=== PATIENT | male | born 1955 | race Hispanic/Latino ===

== ENCOUNTER 2018-11-12 21:09 | Inpatient (IN) | payer MEDICARE, OTHER ==
[2018-11-12] MEDS ORDERED: ASPIRIN PO ONE (21:48)
[2018-11-12 22:00] LABS: Basophils % (Auto) 0.5 % (0.0-1.8); Eosinophils % (Auto) 0.7 % (0.0-4.3); Hematocrit 36.1 % (35.5-45.6); Hemoglobin 11.3 gm/dl (11.8-15.2); Lymphocytes # (Auto) 0.8 K/mm3 (1.2-5.4); Lymphocytes % (Auto) 17.8 % (13.4-35.0); Mean Corpuscular HGB Conc 31 % (32-34); Mean Corpuscular Volume 77 fl (84-94); Monocytes # (Auto) 0.2 K/mm3 (0.0-0.8); Monocytes % (Auto) 5.3 % (0.0-7.3); Red Blood Count 4.72 M/mm3 (3.65-5.03)
[2018-11-12 22:05] LABS: Platelet Count 73 K/mm3 (140-440); Red Cell Distribution Width 23.5 % (13.2-15.2)
--- NOTE | 2018-11-12 22:14 | Emergency Department Report ---
ED Chest Pain HPI - General Chief Complaint: Chest Pain Stated Complaint: CHEST PAIN/EPIGASTRIC PAIN Time Seen by Provider: 11/12/18 22:04 Source: patient Mode of arrival: Ambulatory Limitations: No Limitations - History of Present Illness MD Complaint: chest pain -: Sudden Onset: during rest Pain Radiation: none Severity: severe Severity scale (0 -10): 6 Quality: sharp, pressure Consistency: constant Improves With: nothing Worsens With: nothing re: nausea, diaphoresis Treatments Prior to Arrival: none Aspirin use within the Past 7 Days: (0) No - Related Data On Oral Contraceptives: No Previous Rx's Medication Instructions Recorded Last Taken Type Cyclobenzaprine [Flexeril 10mg] 10 mg PO QHS PRN #15 tablet 03/01/15 Unknown Rx HYDROcodone/APAP 5-325 [[place] 1 each PO Q6HR PRN #15 tablet 04/02/15 Unknown Rx 5-325 mg TAB] Ibuprofen [Motrin 600 MG tab] 600 mg PO Q8H PRN #40 tablet 04/02/15 Unknown Rx cephALEXin [Keflex] 500 mg PO Q6H #40 capsule 04/02/15 Unknown Rx Allergies Allergy/AdvReac Type Severity Reaction Status Date / Time No Known Allergies Allergy Verified 03/01/15 15:11 Heart Score - HEART Score History: Highly suspicious EKG: Non-specific Age: 45-65 Risk factors: 1-2 risk factors Troponin: < normal limit HEART Score: 5 - Critical Actions Critical Actions: 4-6 pts:12-16.6% risk of adverse cardiac event. Should be admitted ED Review of Systems ROS: Stated complaint: CHEST PAIN/EPIGASTRIC PAIN Other details as noted in HPI Comment: All other systems reviewed and negative Constitutional: denies: chills, fever Eyes: denies: eye pain, eye discharge, vision change ENT: denies: ear pain, throat pain Respiratory: shortness of breath. denies: cough, wheezing Cardiovascular: chest pain, palpitations Endocrine: no symptoms reported Gastrointestinal: denies: abdominal pain, nausea, diarrhea Genitourinary: denies: urgency, dysuria Musculoskeletal: denies: back pain, joint swelling, arthralgia Skin: denies: rash, lesions Neurological: denies: headache, weakness, paresthesias Psychiatric: denies: anxiety, depression Hematological/Lymphatic: denies: easy bleeding, easy bruising ED Past Medical Hx - Past Medical History Hx Hypertension: Yes Hx Arthritis: Yes Hx COPD: Yes Additional medical history: gout - Surgical History Past Surgical History?: No - Social History Smoking Status: Never Smoker Substance Use Type: None - Medications Home Medications: Home Medications Medication Instructions Recorded Confirmed Last Taken Type Cyclobenzaprine [Flexeril 10mg] 10 mg PO QHS PRN #15 tablet 03/01/15 Unknown Rx HYDROcodone/APAP 5-325 [[place] 1 each PO Q6HR PRN #15 tablet 04/02/15 Unknown Rx 5-325 mg TAB] Ibuprofen [Motrin 600 MG tab] 600 mg PO Q8H PRN #40 tablet 04/02/15 Unknown Rx cephALEXin [Keflex] 500 mg PO Q6H #40 capsule 04/02/15 Unknown Rx ED Physical Exam - General Limitations: No Limitations General appearance: alert, in no apparent distress - Head Head exam: Present: atraumatic, normocephalic - Eye Eye exam: Present: normal appearance, PERRL - ENT ENT exam: Present: normal exam, normal orophraynx, mucous membranes moist - Neck Neck exam: Present: normal inspection, full ROM - Respiratory Respiratory exam: Present: normal lung sounds bilaterally. Absent: respiratory distress - Cardiovascular Cardiovascular Exam: Present: regular rate, normal rhythm, tachycardia. Absent: systolic murmur, diastolic murmur, rubs, gallop - GI/Abdominal GI/Abdominal exam: Present: soft, normal bowel sounds. Absent: distended, tenderness - Rectal Rectal exam: Present: deferred - Extremities Exam Extremities exam: Present: normal inspection, full ROM, normal capillary refill - Back Exam Back exam: Present: normal inspection, full ROM - Neurological Exam Neurological exam: Present: alert, oriented X3, CN II-XII intact - Psychiatric Psychiatric exam: Present: normal affect, normal mood - Skin Skin exam: Present: warm, dry, intact, normal color. Absent: rash ED Course Vital Signs 11/12/18 11/12/18 11/12/18 21:49 22:09 22:16 Temperature 97.8 F Pulse Rate 87 127 H Respiratory 16 23 Rate Blood Pressure 116/88 103/58 O2 Sat by Pulse 100 84 100 Oximetry 11/12/18 11/12/18 11/12/18 22:30 22:43 22:46 Temperature Pulse Rate 129 H Respiratory 38 H 38 H 16 Rate Blood Pressure 103/58 102/75 O2 Sat by Pulse 98 Oximetry 11/12/18 11/12/18 11/12/18 23:00 23:15 23:54 Temperature Pulse Rate 141 H Respiratory 34 H 25 H 32 H Rate Blood Pressure 111/67 99/73 99/73 O2 Sat by Pulse 98 97 Oximetry 11/13/18 00:00 Temperature Pulse Rate 129 H Respiratory 25 H Rate Blood Pressure 99/59 O2 Sat by Pulse 73 L Oximetry - Consultations Consultation #1: 11/13/18 00:56 I consulted the partner alliance manager regional environmental manager Dr. Castellanos. He recommended putting the patient on heparin with heparin 5000 IV bolus and then admit the patient to the hospitalist. He will see the patient in the morning. Consultation #2: 11/13/18 00:58 Dr Supriya Vyas to admit patient. - Central Line Placement Right Femoral Consent Obtained: verbal consent, emergent situation Time Out Performed: Yes Patient Placed on Monitor/Pulse Ox: Yes MD Prep: mask, gown, gloves Central Line Prep: Chlorhexidine scrub, sterile drapes applied Local Anesthesia Used: Lidocaine 1% Amount of Anesthesia Used (mls): 5 Ultrasound Used for Placement: Yes Central Line Lumen Inserted: triple Bloods Obtained for Lab: No Central Line Position: good blood return, all ports aspirated, flus, sutured in place with 2-0 Dressing Applied: Tegaderm, sterile gauze/tape Patient Tolerated Procedure: well Complications: none ALISON score - Alison Score Age > 65: (0) No Aspirin use within the Past 7 Days: (0) No 3 or more CAD Risk Factors: (0) No 2 or more Angina events in past 24 hrs: (0) No Known CAD with more than 50% Stenosis: (0) No Elevated Cardiac Markers: (0) No ST Deviation Greater than 0.5mm: (0) No ALISON Score: 0 ED Medical Decision Making - Lab Data Result diagrams: 11/13/18 00:59 11/12/18 21:50 Lab Results 11/12/18 11/12/18 11/12/18 Range/Units 21:50 21:50 Unknown WBC 4.4 L (4.5-11.0) K/mm3 RBC 4.72 (3.65-5.03) M/mm3 Hgb 11.3 L (11.8-15.2) gm/dl Hct 36.1 (35.5-45.6) % MCV 77 L (84-94) fl MCH 24 L (28-32) pg MCHC 31 L (32-34) % RDW 23.5 H (13.2-15.2) % Plt Count 73 L (140-440) K/mm3 Lymph % (Auto) 17.8 (13.4-35.0) % [place] % (Auto) 5.3 (0.0-7.3) % Eos % (Auto) 0.7 (0.0-4.3) % Baso % (Auto) 0.5 (0.0-1.8) % Lymph # 0.8 L (1.2-5.4) K/mm3 [place] # 0.2 (0.0-0.8) K/mm3 Eos # 0.0 (0.0-0.4) K/mm3 Baso # 0.0 (0.0-0.1) K/mm3 Seg Neutrophils % 75.7 H (40.0-70.0) % Seg Neutrophils # 3.3 (1.8-7.7) K/mm3 PT 20.5 H (12.2-14.9) Sec. INR 1.71 H (0.87-1.13) APTT 31.2 (24.2-36.6) Sec. Sodium 137 (137-145) mmol/L Potassium 3.1 L (3.6-5.0) mmol/L Chloride 101.6 (98-107) mmol/L Carbon Dioxide 22 (22-30) mmol/L Anion Gap 17 mmol/L BUN 9 (9-20) mg/dL Creatinine 0.6 L (0.8-1.5) mg/dL Estimated GFR > 60 ml/min BUN/Creatinine Ratio 15 % Glucose 124 H (75-100) mg/dL Calcium 8.4 (8.4-10.2) mg/dL Total Bilirubin (0.1-1.2) mg/dL Direct Bilirubin (0-0.2) mg/dL Indirect Bilirubin mg/dL AST (5-40) units/L ALT (7-56) units/L Alkaline Phosphatase (35-129) units/L Troponin T < 0.010 (0.00-0.029) ng/mL NT-Pro-B Natriuret Pep (0-900) pg/mL Total Protein (6.3-8.2) g/dL Albumin (3.9-5) g/dL Albumin/Globulin Ratio % 11/12/18 11/13/18 Range/Units Unknown 00:08 WBC (4.5-11.0) K/mm3 RBC (3.65-5.03) M/mm3 Hgb (11.8-15.2) gm/dl Hct (35.5-45.6) % MCV (84-94) fl MCH (28-32) pg MCHC (32-34) % RDW (13.2-15.2) % Plt Count (140-440) K/mm3 Lymph % (Auto) (13.4-35.0) % [place] % (Auto) (0.0-7.3) % Eos % (Auto) (0.0-4.3) % Baso % (Auto) (0.0-1.8) % Lymph # (1.2-5.4) K/mm3 [place] # (0.0-0.8) K/mm3 Eos # (0.0-0.4) K/mm3 Baso # (0.0-0.1) K/mm3 Seg Neutrophils % (40.0-70.0) % Seg Neutrophils # (1.8-7.7) K/mm3 PT (12.2-14.9) Sec. INR (0.87-1.13) APTT (24.2-36.6) Sec. Sodium (137-145) mmol/L Potassium (3.6-5.0) mmol/L Chloride (98-107) mmol/L Carbon Dioxide (22-30) mmol/L Anion Gap mmol/L BUN (9-20) mg/dL Creatinine (0.8-1.5) mg/dL Estimated GFR ml/min BUN/Creatinine Ratio % Glucose (75-100) mg/dL Calcium (8.4-10.2) mg/dL Total Bilirubin 2.50 H (0.1-1.2) mg/dL Direct Bilirubin 0.9 H (0-0.2) mg/dL Indirect Bilirubin 1.6 mg/dL AST 77 H (5-40) units/L ALT 24 (7-56) units/L Alkaline Phosphatase 72 (35-129) units/L Troponin T < 0.010 (0.00-0.029) ng/mL NT-Pro-B Natriuret Pep 823.6 (0-900) pg/mL Total Protein 7.1 (6.3-8.2) g/dL Albumin 3.2 L (3.9-5) g/dL Albumin/Globulin Ratio 0.8 % - EKG Data -: EKG Interpreted by Me EKG shows normal: sinus rhythm Rate: tachycardia (123) - EKG Data When compared to previous EKG there are: previous EKG unavailable Interpretation: nonspecific ST-T wave mine, LVH 11/12/18 22:37 LBBB. EKG was sent to the partner alliance manager regional environmental manager Dr Castellanos and he reviewed it and agreed with LBBB and No STEMI. He wants aspirin and morphine given to the patient. No code STEMI indicated according to Dr Castellanos. - Radiology Data Radiology results: report reviewed, image reviewed CTA chest showed no PE. CXR is negative. - Medical Decision Making Unstable Angina. Arrhythmia. Chest pain. Hypotension. Critical Care Time: Yes Critical care time in (mins) excluding proc time.: 70 Critical care attestation.: If time is entered above; I have spent that time in minutes in the direct care of this critically ill patient, excluding procedure time. ED Disposition Clinical Impression: Unstable angina, Hypokalemia Chest pain Qualifiers: Chest pain type: unspecified Qualified Code(s): R07.9 - Chest pain, unspecified Arrhythmia Qualifiers: Arrhythmia type: unspecified cardiac arrhythmia Qualified Code(s): I49.9 - Card iac arrhythmia, unspecified Disposition: -09 OP ADMIT IP TO THIS HOSP Is pt being admited?: Yes Does the pt Need Aspirin: Yes Condition: Stable Instructions: Angina (ED), Chest Pain (ED) Referrals: PRIMARY CARE,MD [Primary Care Provider] - 3-5 Days Time of Disposition: 03:00
[2018-11-12] MEDS ORDERED: NACL 0.9% 1000 ML 1,000 ML ONE (22:16)
[2018-11-12] MEDS ORDERED: MORPHINE IV ONE (22:22)
[2018-11-12] MEDS ORDERED: ZOFRAN IV ONE (22:23)
[2018-11-12 22:24] LABS: BUN/Creatinine Ratio 15; Blood Urea Nitrogen 9 mg/dL (9-20); Calcium 8.4 mg/dL (8.4-10.2); Hemolysis Index 8
[2018-11-12 22:33] LABS: INR 1.71 (0.87-1.13)
[2018-11-12 22:34] LABS: Partial Thromboplastin Time 31.2 Sec. (24.2-36.6)
[2018-11-12] MEDS ORDERED: NACL 0.9% 1000 ML 1,000 ML IV ONE (22:36)
[2018-11-12 22:39] LABS: Albumin 3.2 g/dL (3.9-5); Bilirubin,Direct 0.9 mg/dL (0-0.2)
--- NOTE | 2018-11-12 23:27 | XRay Report ---
FINAL REPORT PROCEDURE: XR CHEST 1V AP TECHNIQUE: Chest radiograph anteroposterior view. CPT 35780 HISTORY: chest pain COMPARISON: No prior studies are available for comparison. FINDINGS: Heart: Normal. Mediastinum/Vessels: Normal. Lungs/Pleural space: Normal. Bony thorax: No acute osseous abnormality. Life support devices: None. IMPRESSION: No acute cardiopulmonary abnormality.
--- NOTE | 2018-11-13 00:02 | Cat Scan Report ---
FINAL REPORT PROCEDURE: CT ANGIO CHEST TECHNIQUE: Computerized tomographic angiography of the chest was performed after the IV injection of iodinated nonionic contrast including image processing. The image data was postprocessed using 2-dim ensional multiplanar reformatted (MPR) and 3-dimensional (MIP and/or volume rendered) techniques. HISTORY: chest pain COMPARISON: No prior studies are available for comparison. FINDINGS: Heart and pericardium: Normal. Thoracic aorta: Normal. Pulmonary vasculature: No evidence of pulmonary arterial emboli. Lymph nodes: No enlarged thoracic lymph nodes. Lungs: Slight obstructive pulmonary changes identified in both lungs. No acute consolidation or effus ion. The central airway is patent. Pleural space: No effusion, thickening, or pneumothorax. Musculoskeletal structures: No significant abnormality. Upper abdominal structures: No significant abnormality. IMPRESSION: There is no evidence of pulmonary arterial emboli. No evidence of an acute cardiopulmonary process.
[2018-11-13] MEDS ORDERED: HEPARIN 10,000 UNITS/10 ML IV ONE (00:51)
[2018-11-13] MEDS ORDERED: CORDARONE 150 MG in D5W 97 ML IV ONE (00:58)
[2018-11-13] MEDS ORDERED: HEPARIN/ 0.45% NACL-25,000 UNIT/500 ML 25,000 UNIT/500 ML BAG IV SCH (01:00)
[2018-11-13] MEDS ORDERED: CORDARONE 900 MG in D5W 482 ML IV SCH (01:00)
[2018-11-13 01:45] LABS: Hematocrit 37.7 % (35.5-45.6); Hemoglobin 11.2 gm/dl (11.8-15.2)
[2018-11-13 01:52] LABS: INR 1.9 (0.87-1.13)
[2018-11-13 01:53] LABS: Partial Thromboplastin Time 30.3 Sec. (24.2-36.6)
[2018-11-13] MEDS ORDERED: NACL 0.9% 1000 ML 1,000 ML IV ONE ×2 (02:59→21:00)
[2018-11-13] MEDS ORDERED: MAGNESIUM SULFATE 2GM/50ML 2 GM/50 ML BAG IV ONE (03:22)
[2018-11-13] MEDS: KCL 10MEQ/100ML 10 MEQ/100 ML BAG IV SCH ×2 (03:56→07:35)
[2018-11-13] MEDS: LEVOPHED 8 MG in NACL 0.9% 250ML 242 ML IV SCH ×3 (03:57→15:44)
[2018-11-13] MEDS ORDERED: ZOFRAN IV PRN (04:49)
[2018-11-13] MEDS ORDERED: SODIUM CHLORIDE FLUSH SYRINGE 10 ML IV PRN (04:49)
[2018-11-13] MEDS ORDERED: TYLENOL PO PRN (04:49)
--- NOTE | 2018-11-13 05:21 | History and Physical Report ---
History of Present Illness Date of examination: 11/13/18 History of present illness: 63-year-old man with history of hypertension, COPD, hepatitis C, left bundle branch block cause emergency room with complaints of chest pain. Pain is in the epigastric area which he describes as sharp, constant, intensity7/10, no radia tion, cannot identify exacerbating or relieving factor. He admits to shortness of breath, diaphoresis and nausea. Denies palpitation. While in the emergency room he had a run of [email or web address], he was started on amiodarone drip, heparin drip. His blood pressure dropped and was started on Levophed drip Review of systems Constitutional: no weight loss, chills, fever Ears, eyes, nose, mouth and throat: no nasal congestion, no nasal discharge, no sinus pressure, no vision change, no red eye. Neck: No neck pain or rigidity. Cardiovascular: no palpitations Respiratory: no cough, +shortness of breath Gastrointestinal: no hematochezia, abdominal pain Genitourinary : no frequency , no hematuria Musculoskeletal: no joint swelling or muscle ache Integumentary: no rash, no pruritis Neurological: no parathesias, no focal weakness Endocrine: no cold or heat intolerance, no polyuria or polydipsia Hematologic/Lymphatic: no easy bruising, no easy bleeding, no gland swelling Allergic/Immunologic: no urticaria, no angioedema. PAST MEDICAL HISTORY:hypertension, COPD, hepatitis C, left bundle branch block PAST SURGICAL HISTORY: Leg surgery SOCIAL HISTORY: Denies alcohol, drugs, tobacco FAMILY HISTORY: Hypertension Medications and Allergies Allergies Allergy/AdvReac Type Severity Reaction Status Date / Time No Known Allergies Allergy Verified 03/01/15 15:11 Home Medications Medication Instructions Recorded Confirmed Last Taken Type Cyclobenzaprine [Flexeril 10mg] 10 mg PO QHS PRN #15 tablet 03/01/15 Unknown Rx RX: HYDROcodone/APAP 5-325 [[place] 1 each PO Q6HR PRN #15 tablet 04/02/15 Unknown Rx 5-325 mg TAB] RX: Ibuprofen [Motrin 600 MG tab] 600 mg PO Q8H PRN #40 tablet 04/02/15 Unknown Rx cephALEXin [Keflex] 500 mg PO Q6H #40 capsule 04/02/15 Unknown Rx Active Meds: Active Medications Acetaminophen (Tylenol) 650 mg PO Q4H PRN PRN Reason: Pain MILD(1-3)/Fever >100.5/FERRARI Heparin Sodium/Sodium Chloride (Heparin/ 0.45% Nacl-25,000 Unit/500 Ml) 25,000 unit in 500 mls @ 20 mls/hr IV TITRATE ALVA; Protocol Last Admin: 11/13/18 03:06 Dose: 1,000 units/hr, 20 mls/hr Documented by: Amiodarone HCl 900 mg/ (Dextrose) 500 mls @ 33.33 mls/hr IV DIRECT ALVA; Protocol Last Admin: 11/13/18 02:35 Dose: 1 mg/min, 33.33 mls/hr Documented by: Norepinephrine 8 mg/ Sodium (Chloride) 250 mls @ 3.75 mls/hr IV TITR ALVA; Protocol Last Admin: 11/13/18 03:57 Dose: 2 mcg/min, 3.75 mls/hr Documented by: Ondansetron HCl (Zofran) 4 mg IV Q8H PRN PRN Reason: Nausea And Vomiting Sodium Chloride (Sodium Chloride Flush Syringe 10 Ml) 10 ml IV BID ALVA Sodium Chloride (Sodium Chloride Flush Syringe 10 Ml) 10 ml IV PRN PRN PRN Reason: LINE FLUSH Exam - Physical Exam Narrative exam: General Apperance: The patient lying in bed, breathing comfortable HEENT: Normocephalic, atraumatic. Pupils equally round and reactive to light, EOMI, no sclericterus or JVD or thyromegaly or nodule. , no carotid bruit, mucous membranes moist, no exudate or erythema Heart: S1-S2, regular is rhythm Lungs: Clear to auscultation bilaterally, breathing comfortable Abdomen: Positive bowel sounds, soft, tender inthe epigastric area, nondistended, no organomegaly Extremities: No edema cyanosis clubbing Skin: no rash, nodule, warm and dry Neuro: cranial nerves 2-12 intact, speech is fluent, motor/sensory intact - Constitutional Vitals: Temp Pulse Resp BP Pulse Ox 97.8 F 98 H 36 H 92/63 100 11/12/18 21:49 11/13/18 04:00 11/13/18 04:00 11/13/18 04:00 11/13/18 04:00 Results - Labs CBC & Chem 7: 11/15/18 03:36 11/15/18 03:36 Labs: Abnormal lab results 11/12/18 11/12/18 11/12/18 Range/Units 21:50 21:50 Unknown WBC 4.4 L (4.5-11.0) K/mm3 Hgb 11.3 L (11.8-15.2) gm/dl MCV 77 L (84-94) fl MCH 24 L (28-32) pg MCHC 31 L (32-34) % RDW 23.5 H (13.2-15.2) % Plt Count 73 L (140-440) K/mm3 Lymph # 0.8 L (1.2-5.4) K/mm3 Seg Neutrophils % 75.7 H (40.0-70.0) % PT 20.5 H (12.2-14.9) Sec. INR 1.71 H (0.87-1.13) Potassium 3.1 L (3.6-5.0) mmol/L Creatinine 0.6 L (0.8-1.5) mg/dL Glucose 124 H (75-100) mg/dL Total Bilirubin (0.1-1.2) mg/dL Direct Bilirubin (0-0.2) mg/dL AST (5-40) units/L Albumin (3.9-5) g/dL 11/12/18 11/13/18 11/13/18 Range/Units Unknown 00:59 00:59 WBC (4.5-11.0) K/mm3 Hgb 11.2 L (11.8-15.2) gm/dl MCV (84-94) fl MCH (28-32) pg MCHC (32-34) % RDW (13.2-15.2) % Plt Count 75 L (140-440) K/mm3 Lymph # (1.2-5.4) K/mm3 Seg Neutrophils % (40.0-70.0) % PT 22.2 H (12.2-14.9) Sec. INR 1.90 H (0.87-1.13) Potassium (3.6-5.0) mmol/L Creatinine (0.8-1.5) mg/dL Glucose (75-100) mg/dL Total Bilirubin 2.50 H (0.1-1.2) mg/dL Direct Bilirubin 0.9 H (0-0.2) mg/dL AST 77 H (5-40) units/L Albumin 3.2 L (3.9-5) g/dL - Imaging and Cardiology CT scan - chest: report reviewed Assessment and Plan Assessment V. tach Chest pain Epigastric tenderness Hypertension Cirrhosis Hep C Thrombocytopenia Plan Continue amiodarone drip, levophed drip DC heparin drip, patient's platelet is 73, monitor hemoglobin Check CT of the abdomen Check cardiac enzymes, echo, consult cardiology Consult critical care DVT prophylaxis
--- NOTE | 2018-11-13 06:50 | Cat Scan Report ---
FINAL REPORT PROCEDURE: CT ABDOMEN PELVIS WO CON TECHNIQUE: Computerized axial tomography of the abdomen and pelvis was performed without intravenous contrast. This study is performed without intravascular contrast material and its sensitivity for ab dominal and pelvic pathology, including neoplasms, inflammation, abscess, free fluid, thrombosis, art erial dissection and infarction, is reduced compared with a contrast enhanced study. HISTORY: abd pain COMPARISON: No prior studies are available for comparison. FINDINGS: Visualized lower thorax: Mild atelectasis both lower lungs. Liver: The liver has multiple areas of hypoattenuation consistent cirrhosis is a and possibly metasta tic change.. Spleen: Normal size and attenuation. Gallbladder and biliary system: Normal. Pancreas: Normal. Adrenals: Normal. Kidneys: Normal. GI tract: No obstruction. Multiple areas of attenuation throughout the liver may represent fibrosis a nd/or a mass this region. There is moderate ascites around the upper abdominal organs spine arm of th e pelvis.. Lymph nodes and mesentery: Normal. Vasculature: Moderate atherosclerosis of the aorta and branching vessels . Bladder: Normal. Reproductive organs: No pelvic masses. Peritoneum: There is scattered fluid throughout the abdomen and pelvis.. Musculoskeletal structures: No significant abnormality. Other: None. IMPRESSION: There are multiple areas of hypoattenuation throughout the liver consistent with cirrhosis and possib le metastatic change. Multiple loops of slightly dilated gas air-filled and gas-filled small bowel consistent with enteriti s or ileus. No obstruction is seen. Moderate ascites within the abdomen and pelvis. Atelectasis both lower lungs..
[2018-11-13 07:06] LABS: Hematocrit 34.8 % (35.5-45.6); Hemoglobin 10.7 gm/dl (11.8-15.2); Mean Corpuscular HGB Conc 31 % (32-34); Mean Corpuscular Volume 77 fl (84-94); Red Blood Count 4.51 M/mm3 (3.65-5.03)
[2018-11-13 07:25] LABS: Calcium 7.8 mg/dL (8.4-10.2)
[2018-11-13 07:26] LABS: Platelet Count 75 K/mm3 (140-440); Red Cell Distribution Width 22.7 % (13.2-15.2)
[2018-11-13 07:32] LABS: Creatine Kinase MB 2.4 ng/mL (0.0-4.0)
[2018-11-13 10:11] LABS: Band Neutrophils # (Manual) 0.5 K/mm3; Basophils % (Manual) 0 % (0.0-1.8); Eosinophils % (Manual) 0 % (0.0-4.3); Total Cells Counted 100
[2018-11-13 10:12] LABS: Anisocytosis 1+; Hypochromasia 1+; Ovalocytes Few; Platelet Estimate Consistent w Auto
[2018-11-13] MEDS ORDERED: MORPHINE IV PRN ×2 (11:07→11:54)
--- NOTE | 2018-11-13 11:47 | Consultation ---
History of Present Illness - Reason for Consult Consult date: 11/13/18 Hypotension Requesting physician: TANGELA AVINA - History of Present Illness 63 y/o male, presented to ED with chest pain. CTA was done and no PE was seen. Per patient soon there after he developed abdominal pain. Abdomen is distended. Patient also became hypotensive in the ED. Right groin ling placed and started on levophed. This is how he was admitted to the ICU. Patient remains on le vophed drip. He is on amio drip as he had a run of VTACH per report in the ED. He is awake and alert, in moderate distress. No other family or friends present at the bedside. Medications and Allergies Allergies Allergy/AdvReac Type Severity Reaction Status Date / Time No Known Allergies Allergy Verified 03/01/15 15:11 Home Medications Medication Instructions Recorded Confirmed Last Taken Type Cyclobenzaprine [Flexeril 10mg] 10 mg PO QHS PRN #15 tablet 03/01/15 Unknown Rx HYDROcodone/APAP 5-325 [[place] 1 each PO Q6HR PRN #15 tablet 04/02/15 Unknown Rx 5-325 mg TAB] Ibuprofen [Motrin 600 MG tab] 600 mg PO Q8H PRN #40 tablet 04/02/15 Unknown Rx cephALEXin [Keflex] 500 mg PO Q6H #40 capsule 04/02/15 Unknown Rx Active Meds: Active Medications Acetaminophen (Tylenol) 650 mg PO Q4H PRN PRN Reason: Pain MILD(1-3)/Fever >100.5/FERRARI Heparin Sodium/Sodium Chloride (Heparin/ 0.45% Nacl-25,000 Unit/500 Ml) 25,000 unit in 500 mls @ 20 mls/hr IV TITRATE ALVA; Protocol Last Admin: 11/13/18 03:06 Dose: 1,000 units/hr, 20 mls/hr Documented by: Amiodarone HCl 900 mg/ (Dextrose) 500 mls @ 33.33 mls/hr IV DIRECT ALVA; Protocol Last Titration: 11/13/18 09:18 Dose: 0.5 mg/min, 16.67 mls/hr Documented by: Norepinephrine 8 mg/ Sodium (Chloride) 250 mls @ 3.75 mls/hr IV TITR ALVA; Protocol Last Titration: 11/13/18 07:15 Dose: 14 mcg/min, 26.25 mls/hr Documented by: Morphine Sulfate (Morphine) 2 mg IV Q4H PRN PRN Reason: Pain, Moderate (4-6) Ondansetron HCl (Zofran) 4 mg IV Q8H PRN PRN Reason: Nausea And Vomiting Sodium Chloride (Sodium Chloride Flush Syringe 10 Ml) 10 ml IV BID ALVA Sodium Chloride (Sodium Chloride Flush Syringe 10 Ml) 10 ml IV PRN PRN PRN Reason: LINE FLUSH Review of Systems All systems: negative Exam - Constitutional Vitals: Temp Pulse Resp BP Pulse Ox 97.8 F 92 H 35 H 95/60 96 11/12/18 21:49 11/13/18 09:10 11/13/18 09:10 11/13/18 09:10 11/13/18 11:40 General appearance: Present: mild distress, well-nourished, disheveled - EENT Eyes: Present: PERRL, EOM intact ENT: hearing intact - Neck Neck: Present: supple, normal ROM - Respiratory Respiratory effort: labored Respiratory: bilateral: diminished (but clear) - Cardiovascular Rhythm: regular Heart Sounds: Present: S1 & S2 - Extremities Extremities: no ischemia - Abdominal General gastrointestinal: Present: distended, hypoactive bowel sounds Male genitourinary: Present: deferred - Rectal Rectal Exam: deferred - Musculoskeletal Musculoskeletal: strength equal bilaterally Results - Labs CBC & Chem 7: 11/13/18 06:56 11/13/18 06:56 Labs: Abnormal lab results 11/12/18 11/12/18 11/12/18 Range/Units 21:50 21:50 Unknown WBC 4.4 L (4.5-11.0) K/mm3 Hgb 11.3 L (11.8-15.2) gm/dl Hct (35.5-45.6) % MCV 77 L (84-94) fl MCH 24 L (28-32) pg MCHC 31 L (32-34) % RDW 23.5 H (13.2-15.2) % Plt Count 73 L (140-440) K/mm3 Lymph # 0.8 L (1.2-5.4) K/mm3 Seg Neutrophils % 75.7 H (40.0-70.0) % Lymphocytes % (Manual) (13.4-35.0) % Monocytes % (Manual) (0.0-7.3) % Lymphocytes # (Manual) (1.2-5.4) K/mm3 PT 20.5 H (12.2-14.9) Sec. INR 1.71 H (0.87-1.13) Sodium (137-145) mmol/L Potassium 3.1 L (3.6-5.0) mmol/L Carbon Dioxide (22-30) mmol/L Creatinine 0.6 L (0.8-1.5) mg/dL Glucose 124 H (75-100) mg/dL Calcium (8.4-10.2) mg/dL Total Bilirubin (0.1-1.2) mg/dL Direct Bilirubin (0-0.2) mg/dL AST (5-40) units/L Total Creatine Kinase (55-170) units/L Albumin (3.9-5) g/dL 11/12/18 11/13/18 11/13/18 Range/Units Unknown 00:59 00:59 WBC (4.5-11.0) K/mm3 Hgb 11.2 L (11.8-15.2) gm/dl Hct (35.5-45.6) % MCV (84-94) fl MCH (28-32) pg MCHC (32-34) % RDW (13.2-15.2) % Plt Count 75 L (140-440) K/mm3 Lymph # (1.2-5.4) K/mm3 Seg Neutrophils % (40.0-70.0) % Lymphocytes % (Manual) (13.4-35.0) % Monocytes % (Manual) (0.0-7.3) % Lymphocytes # (Manual) (1.2-5.4) K/mm3 PT 22.2 H (12.2-14.9) Sec. INR 1.90 H (0.87-1.13) Sodium (137-145) mmol/L Potassium (3.6-5.0) mmol/L Carbon Dioxide (22-30) mmol/L Creatinine (0.8-1.5) mg/dL Glucose (75-100) mg/dL Calcium (8.4-10.2) mg/dL Total Bilirubin 2.50 H (0.1-1.2) mg/dL Direct Bilirubin 0.9 H (0-0.2) mg/dL AST 77 H (5-40) units/L Total Creatine Kinase (55-170) units/L Albumin 3.2 L (3.9-5) g/dL 11/13/18 11/13/18 11/13/18 Range/Units 06:56 06:56 06:56 WBC 3.6 L (4.5-11.0) K/mm3 Hgb 10.7 L (11.8-15.2) gm/dl Hct 34.8 L (35.5-45.6) % MCV 77 L (84-94) fl MCH 24 L (28-32) pg MCHC 31 L (32-34) % RDW 22.7 H (13.2-15.2) % Plt Count 75 L (140-440) K/mm3 Lymph # (1.2-5.4) K/mm3 Seg Neutrophils % (40.0-70.0) % Lymphocytes % (Manual) 3.0 L (13.4-35.0) % Monocytes % (Manual) 10.0 H (0.0-7.3) % Lymphocytes # (Manual) 0.1 L (1.2-5.4) K/mm3 PT (12.2-14.9) Sec. INR (0.87-1.13) Sodium 136 L (137-145) mmol/L Potassium 3.3 L (3.6-5.0) mmol/L Carbon Dioxide 13 L D (22-30) mmol/L Creatinine 1.6 H D (0.8-1.5) mg/dL Glucose (75-100) mg/dL Calcium 7.8 L (8.4-10.2) mg/dL Total Bilirubin (0.1-1.2) mg/dL Direct Bilirubin (0-0.2) mg/dL AST (5-40) units/L Total Creatine Kinase 185 H (55-170) units/L Albumin (3.9-5) g/dL Assessment and Plan 63 y/o male, originally presented with chest pain resolved, now with abdominal pain, distention and possible Ileus vs enteritis based up CT read with ascities and hypotension. 1. Patient appears to be septic but exact etiology is not known. He is leukopenic and hypotensive. Suggest checking blood and urine cultures as well as UA. Sent lactic acid. Given read of CT with ascities, could have SBP so needs at least a diagnostic paracentesis and empiric abx therapy. 2. Hypotension- Continue levophed. Can give more volume but must be careful and monitor pulmonary status closely. With possible liver disease will add vasopressin therapy as well. 3. Hypokalemia, replace per primary team. 4. NPO for now, ok with ICE chips CCT 31 minutes.
--- NOTE | 2018-11-13 12:37 | Consultation ---
History of Present Illness Consult date: 11/13/18 Consult reason: chest pain History of present illness: 63-year-old white male presenting with chest pain and epigastric pain which is nonexertional. Patient while in the emergency room had a run of ventricular tachycardia which was nonsustained patient was started on an amiodarone drip as well as a heparin drip. His pain at the time of my evaluation has subsided. Past History Past Medical History: CAD, COPD, hypertension, hyperlipidemia Past Surgical History: No surgical history Social history: no significant social history Medications and Allergies Allergies Allergy/AdvReac Type Severity Reaction Status Date / Time No Known Allergies Allergy Verified 03/01/15 15:11 Home Medications Medication Instructions Recorded Confirmed Last Taken Type Cyclobenzaprine [Flexeril 10mg] 10 mg PO QHS PRN #15 tablet 03/01/15 Unknown Rx HYDROcodone/APAP 5-325 [[place] 1 each PO Q6HR PRN #15 tablet 04/02/15 Unknown Rx 5-325 mg TAB] Ibuprofen [Motrin 600 MG tab] 600 mg PO Q8H PRN #40 tablet 04/02/15 Unknown Rx cephALEXin [Keflex] 500 mg PO Q6H #40 capsule 04/02/15 Unknown Rx Active Meds: Active Medications Heparin Sodium/Sodium Chloride (Heparin/ 0.45% Nacl-25,000 Unit/500 Ml) 25,000 unit in 500 mls @ 20 mls/hr IV TITRATE ALVA; Protocol Last Admin: 11/13/18 03:06 Dose: 1,000 units/hr, 20 mls/hr Documented by: Amiodarone HCl 900 mg/ (Dextrose) 500 mls @ 33.33 mls/hr IV DIRECT ALVA; Protocol Last Titration: 11/13/18 09:18 Dose: 0.5 mg/min, 16.67 mls/hr Documented by: Norepinephrine 8 mg/ Sodium (Chloride) 250 mls @ 3.75 mls/hr IV TITR ALVA; Protocol Last Titration: 11/13/18 07:15 Dose: 14 mcg/min, 26.25 mls/hr Documented by: Vasopressin 20 unit/ Sodium (Chloride) 101 mls @ 9.09 mls/hr IV TITR ALVA; Protocol Morphine Sulfate (Morphine) 1 mg IV Q4H PRN PRN Reason: Pain, Moderate (4-6) Ondansetron HCl (Zofran) 4 mg IV Q8H PRN PRN Reason: Nausea And Vomiting Sodium Chloride (Sodium Chloride Flush Syringe 10 Ml) 10 ml IV BID ALVA Sodium Chloride (Sodium Chloride Flush Syringe 10 Ml) 10 ml IV PRN PRN PRN Reason: LINE FLUSH Review of Systems Constitutional: no weight loss, no weight gain, no sweats, no anorexia, no fatigue, no weakness Ears, nose, mouth and throat: no deferred, no ear pain, no ear discharge, no tinnitis, no dental pain, no mouth pain, no headache, no vertigo Cardiovascular: chest pain, no orthopnea, no palpitations, no lightheadedness, no high blood pressure, no leg edema Respiratory: no cough, no hemoptysis, no dyspnea on exertion, no congestion, no pleurisy Gastrointestinal: no abdominal pain, no nausea, no vomiting, no diarrhea, no melena Genitourinary Male: no dysuria, no hematuria, no flank pain, no discharge, no urinary frequency, no nocturia, no incontinence Integumentary: no rash, no pruritis Neurological: no head injury, no paralysis, no weakness, no numbness, no vertigo, no headaches Psychiatric: no anxiety, no memory loss Endocrine: no cold intolerance, no heat intolerance, no excessive thirst, no polydipsia, no polyuria Hematologic/Lymphatic: no easy bruising, no easy bleeding Allergic/Immunologic: no urticaria, no allergic rhinitis, no wheezing Physical Examination Vital Signs Temp Pulse Resp BP Pulse Ox 97.8 F 87 16 116/88 100 11/12/18 21:49 11/12/18 21:49 11/12/18 21:49 11/12/18 21:49 11/12/18 21:49 General appearance: no acute distress, well-nourished HEENT: Positive: PERRL, Mucus Membranes Moist Neck: Positive: neck supple, trachea midline Cardiac: Positive: Reg Rate and Rhythm, S1/S2. Negative: Audible Murmur Lungs: Positive: clear to auscultation, Normal Breath Sounds Neuro: Positive: Grossly Intact Abdomen: Positive: Soft, Active Bowel Sounds. Negative: Tender, Distended Male genitourinary: Positive: normal Skin: Positive: Clear Incision: Cardiac Cath Site Musculoskeletal: No Pain, Normal Range of Motion Extremities: Present: normal. Absent: edema Results 11/13/18 06:56 11/13/18 06:56 Cardiac Enzymes 11/12/18 11/13/18 Range/Units Unknown 06:56 AST 77 H (5-40) units/L CK-MB (CK-2) 2.4 (0.0-4.0) ng/mL Coagulation 11/12/18 11/13/18 Range/Units Unknown 00:59 PT 20.5 H 22.2 H (12.2-14.9) Sec. INR 1.71 H 1.90 H (0.87-1.13) APTT 31.2 30.3 (24.2-36.6) Sec. CBC 11/12/18 11/13/18 11/13/18 Range/Units 21:50 00:59 06:56 WBC 4.4 L 3.6 L (4.5-11.0) K/mm3 RBC 4.72 4.51 (3.65-5.03) M/mm3 Hgb 11.3 L 11.2 L 10.7 L (11.8-15.2) gm/dl Hct 36.1 37.7 34.8 L (35.5-45.6) % Plt Count 73 L 75 L 75 L (140-440) K/mm3 Lymph # 0.8 L (1.2-5.4) K/mm3 [place] # 0.2 (0.0-0.8) K/mm3 Eos # 0.0 (0.0-0.4) K/mm3 Baso # 0.0 (0.0-0.1) K/mm3 Comprehensive Metabolic Panel 11/12/18 11/12/18 11/13/18 Range/Units 21:50 Unknown 06:56 Sodium 137 136 L (137-145) mmol/L Potassium 3.1 L 3.3 L (3.6-5.0) mmol/L Chloride 101.6 102.7 (98-107) mmol/L Carbon Dioxide 22 13 L D (22-30) mmol/L BUN 9 13 (9-20) mg/dL Creatinine 0.6 L 1.6 H D (0.8-1.5) mg/dL Glucose 124 H 93 (75-100) mg/dL Calcium 8.4 7.8 L (8.4-10.2) mg/dL Direct Bilirubin 0.9 H (0-0.2) mg/dL Indirect Bilirubin 1.6 mg/dL AST 77 H (5-40) units/L ALT 24 (7-56) units/L Alkaline Phosphatase 72 (35-129) units/L Total Protein 7.1 (6.3-8.2) g/dL Albumin 3.2 L (3.9-5) g/dL Assessment and Plan 1. Chest pain rule out underlying ischemic coronary artery disease 2. Abnormal resting EKG showing a left bundle branch block pattern 3. Chronic obstructive pulmonary disease 4. Essential hypertension 5. Hepatitis C Serial serum troponin levels are negative. We will discontinue intravenous heparin. Evidence of nonsustained ventricular tachycardia not available for review patient however has a left bundle branch block which "have been mistaken for nonsustained ventricular tachycardia. Plan. Discontinue heparin drip discontinue amiodarone drip check echocardiogram scheduled for a Lexiscan thallium scan.
[2018-11-13 13:07] LABS: Creatine Kinase MB 3.8 ng/mL (0.0-4.0)
[2018-11-13] MEDS ORDERED: NACL 0.9% 1000 ML 1,000 ML ONE ×2 (13:14→23:24)
[2018-11-13] MEDS ORDERED: NACL 0.9% 500 ML 500 ML IV ONE (14:15)
[2018-11-13] MEDS: NACL 0.9% 1000 ML 1,000 ML IV SCH ×5 (14:28→21:10)
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
[2018-11-13] MEDS: DIFLUCAN 200 MG/100 ML BAG IV SCH (15:23)
--- NOTE | 2018-11-13 15:28 | Event Note ---
Date: 11/13/18 Patient was seen and evaluated this morning. Patient admitted earlier this morning. H/P imaging and labs were reviewed. Patient has severe abdominal pain with elevated lactic acid level, general surgery was consulted and suspected perforated peptic ulcer, recommended repeat CT, broaden antibiotics including antifungals, may proceed with surgery if there is free air on repeat CT. Consent was obtained. Patient was hypotensive in the morning and was on pressors. Patient had cirrhosis, with ascites, hypertension, COPD. Patient had V. tach and was on amiodarone and discontinued per cardiology recommendation. Patient is critically sick. Prognosis; guarded The high probability of a clinically significant, sudden or life threatening deterioration of the [CV, GI, respiratory] system(s) required my full and direct attention, intervention and personal management. The aggregate critical care time was [34] minutes. This time is in addition to time spent performing reported procedures but includes the following: x] Data Review and interpretation [x] Patient assessment and monitoring of vital signs [x] Documentation [x] Medication orders and management
[2018-11-13] MEDS: PROTONIX 80 MG in NACL 0.9% 100 ML IV SCH (15:29)
[2018-11-13] MEDS: ZOSYN/NS 4.5GM/100ML 4.5 GM/100 ML VIAL IV SCH (16:22)
[2018-11-13] MEDS ORDERED: NACL 0.9% 500 ML 500 ML ONE (18:33)
--- NOTE | 2018-11-13 19:59 | Cat Scan Report ---
FINAL REPORT EXAM: CT ABDOMEN PELVIS W CON HISTORY: Concern for perforation TECHNIQUE: Following IV administration of 100 cc of Omnipaque 300 and administration of GI contrast axial helical imaging was performed through the abdomen and pelvis with sagittal and coronal reformat frank images obtained. Delayed axial helical imaging was also performed through the abdomen and pelvis. Comparison: CT abdomen and pelvis dated November 13, 2018 at 6 01 a.m. FINDINGS: There continues to be atelectasis in both lung bases. Heart is enlarged. The liver is diffusely heterogeneous in appearance. The spleen appears to be normal size. There is evidence of portal systemic collateral flow consistent with portal venous hypertension. The pancreas, kidneys and adrenal glands are unremarkable. The tip of the esophagogastric tube is in the stomach. There is a moderate amount of free fluid in the abdomen and pelvis that appears to of increased in de gree in the interval. The Hounsfield units are higher than would be expected for uncomplicated fluid and may represent proteinaceous content or blood products. There are collections of free air/pneumoperitoneum in the anterior abdomen as was demonstrated on the previous study. GI contrast is demonstrated in the stomach and proximal small bowel. There is no evidence of extravas ation of GI contrast. There is a mildly distended segment of small bowel in the anterior abdomen and pelvis with the appear ance of pneumatosis in the wall. This is suggestive of ischemic bowel wall. There is mild aneurysmal dilatation of the infrarenal abdominal aorta (2.8 centimeters). The this is similar in appearance to the previous study. There is a right femoral venous catheter with the tip in the right external iliac vein. The urinary bladder is moderately distended and unremarkable in appearance. The prostate gland appears to be normal size. The bony structures are notable for grade 2 anterolisthesis L5 on S1 and compression fractures L1 and L3 vertebra with near complete loss of height of the midportion the vertebra. There moderate to luh ed canal stenosis at the level of L1 secondary to retropulsion of the posterior superior endplate of L1 into the anterior epidural space. IMPRESSION: 1. Evidence of bowel wall ischemia with pneumatosis in a segment of small bowel in the anterior abdom en/pelvis. 2. Pneumoperitoneum consistent with bowel perforation. 3. Moderate amount of free fluid in the abdomen and pelvis that has increased in degree since the pre vious study and demonstrates Hounsfield units suggestive of proteinaceous content or blood products. 4. Appearance of hepatic cirrhosis with evidence of portal venous hypertension. 5. Compression fractures lumbar spine with moderate to marked canal stenosis at L1 and grade 2 michael listhesis L5 on S1. 6. Mild aneurysmal dilatation infrarenal abdominal aorta (2.8 centimeters). The findings of evidence of bowel ischemia with bowel perforation and increase in free fluid in the a bdomen and pelvis with Hounsfield units suggestive of proteinaceous content or blood products were re ported to the charge nurse MAVIS Matos at 7:55 p.m. November 13, 2018.
--- NOTE | 2018-11-13 20:37 | Anesthesia Consultation ---
Anesthesia Consult and Med Hx - Airway Anesthetic Teeth Evaluation: Poor ROM Head & Neck: Adequate Mental/Hyoid Distance: Adequate Mallampati Class: Class II Intubation Access Assessment: Probably Good - Pulmonary Exam CTA: No (tachypneic) - Cardiac Exam Cardiac Exam: RRR - Pre-Operative Health Status ASA Pre-Surgery Classification: ASA4, Emergency Proposed Anesthetic Plan: General - Pulmonary Hx Smoking: No Hx Asthma: No Hx Respiratory Symptoms: Yes (tachypnea) SOB: Yes COPD: Yes Home Oxygen Therapy: No Hx Pneumonia: No Hx Sleep Apnea: No - Cardiovascular System Hx Hypertension: Yes Hx Coronary Artery Disease: No Hx Heart Attack/AMI: No - Endocrine Hx End Stage Renal Disease: No - Other Systems Hx Alcohol Use: Yes
--- NOTE | 2018-11-13 20:38 | Anesthesia Day of Surgery ---
Anesthesia Day of Surgery - Day of Surgery Patient Examined: Yes Patient H&P Reviewed: Yes Patient is NPO: Yes Beta Blockers: No Cardiac Clearance: No Pulmonary Clearance: No Derrick's Test: N/A (COPD, Cirrhosis, necrotic bowel)
[2018-11-13] MEDS ORDERED: DECADRON ONE (20:55)
[2018-11-13] MEDS ORDERED: DIPRIVAN 10 MG/ML IV ONE (20:55)
[2018-11-13] MEDS ORDERED: XYLOCAINE MPF 2% ONE (20:56)
[2018-11-13] MEDS ORDERED: ZEMURON IV ONE (20:56)
[2018-11-13] MEDS ORDERED: VERSED IV ONE ×2 (21:57→23:32)
[2018-11-13] MEDS ORDERED: NEO SYNEPHRINE ONE (22:09)
[2018-11-13] MEDS ORDERED: NACL 0.9% 100 ML ONE (22:09)
[2018-11-13] MEDS ORDERED: VERSED IV PRN (23:12)
[2018-11-13] MEDS ORDERED: SUBLIMAZE IV PRN (23:12)
[2018-11-13] MEDS ORDERED: VASELINE LIP THERAPY TP PRN (23:12)
[2018-11-13] MEDS ORDERED: ARTIFICIAL TEARS OPHTH OINT OU PRN (23:12)
[2018-11-13] MEDS ORDERED: HESPAN 500 ML IV ONE (23:19)
[2018-11-13] MEDS ORDERED: MIDAZOLAM 100 MG in NACL 0.9% 80 ML IV SCH (23:45)
[2018-11-14] MEDS ORDERED: NEO SYNEPHRINE/NS Syringe(OR USE) IV ONE (00:02)
--- NOTE | 2018-11-14 00:02 | Post Operative Note ---
Date of procedure: 11/13/18 (Dictation:[id number]) Pre-op diagnosis: Duodenal Perforation Post-op diagnosis: other (cirrhotic liver with multiple nodules) Findings: 1.5cm perforation in duodenum very hard liver with wide spread small yellow nodules on surface large amount of ascites inflamed small bowel. Procedure: 1) ex lap 2) closure of duodenal perforation with Javid patch 3) stapled pyloric exclusion 4) liver bx 5) AbThera Placement Anesthesia: GETA Surgeon: ROBERT CHUNG Estimated blood loss: minimal (<25cc) Pathology: list (culture swabs; liver bx) Specimen disposition: to lab Condition: critical Disposition: PACU
[2018-11-14] MEDS ORDERED: ALBUTEIN IV ONE ×2 (00:04→13:00)
[2018-11-14] MEDS: fentaNYL DRIP Premix 2,000 MCG/100 ML BAG IV SCH (00:35)
[2018-11-14] MEDS: LEVOPHED 8 MG in NACL 0.9% 250ML 242 ML IV SCH ×6 (01:18→22:32)
[2018-11-14] MEDS ORDERED: SODIUM BICARBONATE 150 MEQ in NACL 0.9% 1000 ML 1,000 ML IV SCH ×2 (02:00→16:00)
[2018-11-14] MEDS ORDERED: SODIUM BICARBONATE 150 MEQ in D5W 1,000 ML IV SCH (02:00)
[2018-11-14] MEDS: PROTONIX 80 MG in NACL 0.9% 100 ML IV SCH ×3 (02:05→22:44)
[2018-11-14] MEDS: NEO-SYNEPHRINE 100 MG in NACL 0.9% 90 ML IV SCH ×5 (02:05→22:44)
--- NOTE | 2018-11-14 02:21 | XRay Report ---
FINAL REPORT PROCEDURE: XR CHEST 1V AP TECHNIQUE: Chest radiograph anteroposterior view. CPT 23878 HISTORY: follow up respiratory failure COMPARISON: 11/12/2018 FINDINGS: Heart: Normal. Mediastinum/Vessels: Normal. Lungs/Pleural space: Slight atelectasis right lower lung.. Bony thorax: No acute osseous abnormality. Life support devices: The endotracheal tube ends 4 centimeters above chandler. A nasogastric tube ends below the hemidiaphragms. IMPRESSION: Atelectasis right lower lung. The endotracheal tube and nasogastric tube are properly positioned..
[2018-11-14] MEDS: ZOSYN/NS 4.5GM/100ML 4.5 GM/100 ML VIAL IV SCH ×3 (05:16→06:31)
[2018-11-14 05:30] LABS: Mean Corpuscular HGB Conc 29 % (32-34); Mean Corpuscular Volume 85 fl (84-94); Red Blood Count 3.95 M/mm3 (3.65-5.03)
[2018-11-14 05:40] LABS: Hematocrit 33.5 % (35.5-45.6); Hemoglobin 9.5 gm/dl (11.8-15.2); Platelet Count 76 K/mm3 (140-440); Red Cell Distribution Width 23.8 % (13.2-15.2)
[2018-11-14 05:51] LABS: Albumin 2.6 g/dL (3.9-5); Calcium 7.1 mg/dL (8.4-10.2)
[2018-11-14] MEDS ORDERED: D50W (25GM) Syringe IV ONE ×4 (06:18→09:00)
[2018-11-14 06:58] LABS: Band Neutrophils # (Manual) 6.1 K/mm3; Basophils % (Manual) 0 % (0.0-1.8); Eosinophils % (Manual) 0 % (0.0-4.3); Myelocytes # (Manual) 0.6 K/mm3; Total Cells Counted 100
[2018-11-14 06:59] LABS: Anisocytosis 1+; Platelet Estimate Consistent w Auto
[2018-11-14] MEDS ORDERED: NACL 0.9% 1000 ML 4,000 ML IV ONE (07:23)
[2018-11-14] MEDS ORDERED: D10W 1,000 ML IV SCH (08:00)
[2018-11-14] MEDS: D10W 1,000 ML with SODIUM BICARBONATE 150 MEQ IV SCH ×3 (08:28→22:38)
[2018-11-14] MEDS ORDERED: D50W (25GM) Vial IV PRN (08:36)
[2018-11-14] MEDS: Vasostrict 20 UNIT in NACL 0.9% 100 ML IV SCH ×2 (09:50→18:20)
[2018-11-14] MEDS: DIFLUCAN 200 MG/100 ML BAG IV SCH (09:51)
--- NOTE | 2018-11-14 11:16 | Progress Note ---
Assessment and Plan 1. Acute abdomen secondary to perforated viscus s/p emergent exploratory Lap 2. Respiratory failure 3. Cardiomyopathy unspecified 4. Abnormal resting EKG showing a left bundle branch block pattern 5. Chronic obstructive pulmonary disease 6. Essential hypertension 7. Hepatitis C Plan. Cardiac estrella stable continue IV antibiotics check Echo Subjective Date of service: 11/14/18 Interval history: Patient intubated and sedated. S/P exploratory Lap for perforated viscus Objective Vital Signs Temp Pulse Pulse Resp BP Pulse Ox 11/14/18 10:30 92 H 34 H 79/50 95 11/14/18 10:20 93 H 34 H 81/49 95 11/14/18 10:10 93 H 34 H 80/53 95 11/14/18 10:00 95 H 34 H 87/44 95 11/14/18 09:50 93 H 34 H 86/48 95 11/14/18 09:40 93 H 34 H 85/46 94 11/14/18 09:30 91 H 34 H 85/46 94 11/14/18 09:20 93 H 34 H 88/49 94 11/14/18 09:10 93 H 34 H 96/44 94 11/14/18 09:00 97 H 34 H 81/53 93 11/14/18 08:50 94 H 33 H 81/53 92 11/14/18 08:40 94 H 34 H 96/47 92 11/14/18 08:30 97 H 33 H 84/54 92 11/14/18 08:20 94 H 33 H 84/51 92 11/14/18 08:10 82 28 H 66/40 73 L 11/14/18 08:00 97 H 33 H 91/53 94 11/14/18 07:50 93 H 30 H 78/47 92 11/14/18 07:40 85 27 H 56/35 92 11/14/18 07:30 92 H 32 H 67/40 93 11/14/18 07:20 98 H 32 H 90/43 95 11/14/18 07:10 100 H 33 H 90/48 95 11/14/18 07:06 100 H 94/49 95 11/14/18 07:00 100 H 32 H 94/49 95 11/14/18 06:50 101 H 33 H 100/56 95 11/14/18 06:40 102 H 33 H 110/60 95 11/14/18 06:30 102 H 33 H 106/56 94 11/14/18 06:20 100 H 33 H 101/52 95 11/14/18 06:10 100 H 31 H 108/56 96 11/14/18 06:00 100 H 98 H 32 H 101/51 96 11/14/18 05:50 100 H 33 H 104/56 96 11/14/18 05:40 100 H 32 H 102/54 96 11/14/18 05:30 100 H 31 H 105/53 97 11/14/18 05:20 100 H 31 H 107/54 97 11/14/18 05:10 100 H 31 H 108/56 97 11/14/18 05:00 100 H 31 H 102/54 98 11/14/18 04:50 100 H 30 H 107/55 98 11/14/18 04:40 99 H 30 H 103/52 98 11/14/18 04:30 98 H 28 H 104/55 97 11/14/18 04:20 98 H 28 H 102/54 97 11/14/18 04:10 97 H 98 H 29 H 104/54 97 11/14/18 04:00 97 H 26 H 105/55 98 11/14/18 03:50 96 H 27 H 100/56 98 11/14/18 03:40 96 H 26 H 103/55 98 11/14/18 03:30 95 H 24 101/54 100 11/14/18 03:20 95 H 23 101/56 99 11/14/18 03:10 95 H 24 102/55 99 11/14/18 03:00 94 H 20 107/54 99 11/14/18 02:50 94 H 22 102/54 99 11/14/18 02:40 92 H 19 94/52 98 11/14/18 02:30 91 H 20 92/51 98 11/14/18 02:20 91 H 19 89/49 98 11/14/18 02:10 91 H 18 86/46 99 11/14/18 02:00 92 H 18 87/44 99 11/14/18 01:50 93 H 19 92/50 100 11/14/18 01:40 94 H 18 92/50 98 11/14/18 01:38 97 H 18 84/48 98 11/14/18 01:35 97.1 F L 94 H 18 92/50 99 01/06/19 01:30 88 18 84/48 97 11/14/18 01:20 89 18 80/47 97 11/14/18 01:10 90 18 77/50 96 11/14/18 01:00 91 H 18 79/58 95 11/14/18 00:52 96 H 18 78/50 96 11/14/18 00:50 91 H 18 94/58 11/14/18 00:40 92 H 18 81/49 11/14/18 00:37 91 H 18 80/47 96 11/14/18 00:32 92 H 18 86/54 96 11/14/18 00:30 93 H 18 87/51 94 11/14/18 00:24 95 H 94/58 96 11/14/18 00:22 95 H 18 95/56 95 11/14/18 00:20 95 H 18 94/58 95 11/14/18 00:12 97 H 16 97/50 94 11/14/18 00:10 97 H 16 97/50 94 11/14/18 00:09 104 H 17 11/14/18 00:07 97.9 F 94 H 18 94/59 94 11/14/18 00:00 112 H 22 90 11/13/18 22:00 112 H 11/13/18 21:29 98 F 98/54 11/13/18 21:24 110 H 43 H 91 11/13/18 21:20 110 H 44 H 88 11/13/18 21:10 112 H 43 H 90/59 92 11/13/18 21:00 110 H 44 H 90/59 87 11/13/18 20:50 111 H 37 H 95/60 86 11/13/18 20:40 111 H 46 H 101/70 91 11/13/18 20:34 98.3 F 11/13/18 20:30 113 H 41 H 101/70 80 L 11/13/18 20:20 112 H 47 H 104/66 91 11/13/18 20:15 88 11/13/18 20:10 113 H 49 H 95/58 86 11/13/18 20:00 98.9 F 114 H 112 H 46 H 95/58 86 11/13/18 19:50 110 H 48 H 87/26 87 11/13/18 19:40 107 H 45 H 96/63 84 11/13/18 19:30 107 H 46 H 99/63 87 11/13/18 19:20 107 H 48 H 88 11/13/18 19:10 109 H 42 H 111/57 81 L 11/13/18 19:00 98 F 108 H 47 H 102/70 91 11/13/18 18:50 108 H 45 H 105/65 85 11/13/18 18:45 97.9 F 106 H 30 H 105/65 92 11/13/18 18:40 107 H 44 H 105/65 87 11/13/18 18:30 107 H 43 H 105/65 85 11/13/18 18:20 103 H 19 105/65 80 L 11/13/18 18:10 103 H 30 H 110/68 88 11/13/18 18:00 106 H 40 H 134/91 11/13/18 17:50 101 H 42 H 134/91 91 11/13/18 17:40 105 H 47 H 110/68 85 11/13/18 17:30 99 H 47 H 92/64 86 11/13/18 17:20 102 H 46 H 92/64 88 11/13/18 17:14 81/53 88 11/13/18 16:30 91 H 39 H 81/53 90 11/13/18 16:20 91 H 42 H 81/53 93 11/13/18 16:10 90 41 H 81/53 91 11/13/18 16:00 88 40 H 81/53 93 11/13/18 15:50 88 42 H 92/55 92 11/13/18 15:40 85 35 H 93/58 94 11/13/18 15:30 84 39 H 93/58 97 11/13/18 15:20 82 38 H 100/58 96 11/13/18 15:10 85 38 H 100/58 96 11/13/18 15:00 81 38 H 77/34 94 11/13/18 14:50 79 39 H 77/34 94 11/13/18 14:40 78 35 H 93/48 92 11/13/18 14:30 81 40 H 93/48 92 11/13/18 14:20 84 36 H 89/41 94 11/13/18 14:10 82 36 H 98/59 94 11/13/18 14:00 83 31 H 98/59 93 11/13/18 13:50 82 41 H 84/54 92 11/13/18 13:40 80 41 H 75/54 93 11/13/18 13:30 83 35 H 75/54 93 11/13/18 13:20 84 37 H 79/54 96 11/13/18 13:10 84 40 H 69/51 94 11/13/18 13:00 85 23 69/51 93 11/13/18 12:50 84 38 H 69/51 95 11/13/18 12:40 84 39 H 85/48 11/13/18 12:30 86 42 H 85/48 11/13/18 12:20 84 42 H 85/48 11/13/18 12:10 87 41 H 85/48 11/13/18 12:00 86 40 H 85/48 11/13/18 11:50 86 40 H 97/49 11/13/18 11:40 89 36 H 91/55 95 11/13/18 11:30 91 H 38 H 91/55 11/13/18 11:20 92 H 34 H 87/56 11/13/18 11:10 90 36 H 89/50 96 - Physical Examination General: Other (Intubated and sedated) HEENT: Positive: PERRL, Mucus Membranes Moist Neck: Positive: neck supple, trachea midline Cardiac: Positive: Regular Rate, S1/S2, PMI, Laterally Displaced Lungs: Positive: clear to auscultation, No Wheeze, Rales, Rhonchi Neuro: Positive: Grossly Intact Abdomen: Positive: Tender (S/p surgery abdomen is mildly distended) Skin: Positive: Clear Incision: Cardiac Cath Site Musculoskeletal: No Pain, Normal Range of Motion Extremities: Present: normal. Absent: edema - Labs and Meds Cardiac Enzymes 11/13/18 11/14/18 Range/Units 12:02 05:20 AST 2651 H (5-40) units/L CK-MB (CK-2) 3.8 (0.0-4.0) ng/mL CBC 11/14/18 Range/Units 05:15 WBC 14.3 H (4.5-11.0) K/mm3 RBC 3.95 (3.65-5.03) M/mm3 Hgb 9.5 L (11.8-15.2) gm/dl Hct 33.5 L (35.5-45.6) % Plt Count 76 L (140-440) K/mm3 Comprehensive Metabolic Panel 11/14/18 Range/Units 05:20 Sodium 142 (137-145) mmol/L Potassium 5.6 H D (3.6-5.0) mmol/L Chloride 107.2 H (98-107) mmol/L Carbon Dioxide 10 L (22-30) mmol/L BUN 16 (9-20) mg/dL Creatinine 2.5 H D (0.8-1.5) mg/dL Glucose 11 L* (75-100) mg/dL Calcium 7.1 L (8.4-10.2) mg/dL AST 2651 H (5-40) units/L ALT 437 H (7-56) units/L Alkaline Phosphatase 34 L (35-129) units/L Total Protein 5.6 L D (6.3-8.2) g/dL Albumin 2.6 L (3.9-5) g/dL
[2018-11-14] MEDS ORDERED: NACL 0.9% 1000 ML 1,000 ML IV ONE ×2 (11:49→16:01)
--- NOTE | 2018-11-14 12:03 | Progress Note ---
Assessment and Plan 63 y/o male, originally presented with chest pain resolved, now with abdominal pain, distention and possible Ileus vs enteritis based up CT read with ascities and hypotension found to have perforated viscous after discussing in consultatio n with surgery, s/p ex lap with open abdomen and wound vac, repair of torn viscous, and live biopsy. 63 y/o male originally admitted as a diagnosis of chest pain. Had a run of VTACH in the ED and became hypotensive. Central line placed and transferred to the unit. This was Thursday night into Thursday morning. In the unit, complained of abdominal pain with severe tenderness with mild palpation. After exam and interview, patient really had epigastric pain that has now progressed to his lower abdomen. It is the distended with hypoactive bowel sounds. Originally placed NG tube based on CT from the ED that was concerning for Ileus, only got back about 200. Sent lactic acid given that patient was hypotensive. Came back at 13 and that's when surgery consult was initiated. They reviewed the CT and saw the free air. Repeated CT confirmed and patient take to OR Thursday night. Current plan 1. Aggressive volume resuscitation. So far, ordered for 7 liters of saline today. Got at least 4 yesterday. Drop in hemoglobin is likely dilutional, do not feel patient is bleeding. Hypotension is currently multifactorial from sepsis from intrabdominal source as well as volume depletion and poor forward flow secondary to heart failure. Cards have seen but made no mention of maybe inotropic therapy so will discuss with them. if not able to reach may try low dose to see if this helps improve cardiac output. Will repeat CBC later tonight and may consider blood transfusion as a volume mechanical maintenance as well. 2. Sepsis-likely from perforated ulcer. Continue broad spec abx including zosy n and fluconazole. Did receive one dose of Vanc on yesterday. Agressive resuscitation. Will hold on stress dose steroids given open abdomen and how this could hinder wound healing. Also continue BID PPI. Agree with Albumin therapy given by surgery and will repeat later today. 3. Renal failure-likely secondary to shock. 4. Metabolic acidosis- severe, pH is still less than 7. hence why pressors are not working. Will push 3 more apps of Na bicarb now and continue drip. not a candiate for HD and this facility does not have CVVHD 5. GI- per surgery about 4 liters of ascities moved, clear, no puss. albumin given and may give more. Biopsy pending and no stomach and Duodenum are not connected. If patient survives this and shows improvement surgery would like to return to OR on if possible. 6. CV-cardiomyopathy with etiology unknown. HR is defintely not responding appropriately given current illness. Will try inotropic therapy with Dobutamine 7. Overall prognosis is guarded to poor. very high risk of cardiac arrest. Patient is critically ill. CCT 91 minutes. Subjective Date of service: 11/14/18 Interval history: Appreciate Surgery help on yesterday. Repeat CT showed perforated viscous. Pat ient taken to OR last night, returned intubated with open abdomen and wound vac. patient on multiple pressors and severely acidotic. Started bicarb drip in D10 secondary persistent hypoglycemia. Patient was also given 3 amps push last night as well. lactic acid remains elevated but no talk of necrotic gut removed from brief surgery note. Sedated with Fentanyl but only at 0.5. No family present at bedside. Objective Vital Signs - 12hr 11/14/18 11/14/18 11/14/18 00:00 00:07 00:09 Temperature 97.9 F Pulse Rate 94 H 104 H Pulse Rate [ 112 H Right Radial] Respiratory 22 18 17 Rate Blood Pressure 94/59 O2 Sat by Pulse 90 94 Oximetry 11/14/18 11/14/18 11/14/18 00:10 00:12 00:20 Temperature Pulse Rate 97 H 97 H 95 H Pulse Rate [ Right Radial] Respiratory 16 16 18 Rate Blood Pressure 97/50 97/50 94/58 O2 Sat by Pulse 94 94 95 Oximetry 11/14/18 11/14/18 11/14/18 00:22 00:24 00:30 Temperature Pulse Rate 95 H 95 H 93 H Pulse Rate [ Right Radial] Respiratory 18 18 Rate Blood Pressure 95/56 94/58 87/51 O2 Sat by Pulse 95 96 94 Oximetry 11/14/18 11/14/18 11/14/18 00:32 00:37 00:40 Temperature Pulse Rate 92 H 91 H 92 H Pulse Rate [ Right Radial] Respiratory 18 18 18 Rate Blood Pressure 86/54 80/47 81/49 O2 Sat by Pulse 96 96 Oximetry 11/14/18 11/14/18 11/14/18 00:50 00:52 01:00 Temperature Pulse Rate 91 H 96 H 91 H Pulse Rate [ Right Radial] Respiratory 18 18 18 Rate Blood Pressure 94/58 78/50 79/58 O2 Sat by Pulse 96 95 Oximetry 11/14/18 11/14/18 11/14/18 01:10 01:20 01:30 Temperature Pulse Rate 90 89 88 Pulse Rate [ Right Radial] Respiratory 18 18 18 Rate Blood Pressure 77/50 80/47 84/48 O2 Sat by Pulse 96 97 97 Oximetry 11/14/18 11/14/18 11/14/18 01:35 01:38 01:40 Temperature 97.1 F L Pulse Rate 94 H 97 H 94 H Pulse Rate [ Right Radial] Respiratory 18 18 18 Rate Blood Pressure 92/50 84/48 92/50 O2 Sat by Pulse 99 98 98 Oximetry 11/14/18 11/14/18 11/14/18 01:50 02:00 02:10 Temperature Pulse Rate 93 H 92 H 91 H Pulse Rate [ Right Radial] Respiratory 19 18 18 Rate Blood Pressure 92/50 87/44 86/46 O2 Sat by Pulse 100 99 99 Oximetry 11/14/18 11/14/18 11/14/18 02:20 02:30 02:40 Temperature Pulse Rate 91 H 91 H 92 H Pulse Rate [ Right Radial] Respiratory 19 20 19 Rate Blood Pressure 89/49 92/51 94/52 O2 Sat by Pulse 98 98 98 Oximetry 11/14/18 11/14/18 11/14/18 02:50 03:00 03:10 Temperature Pulse Rate 94 H 94 H 95 H Pulse Rate [ Right Radial] Respiratory 22 20 24 Rate Blood Pressure 102/54 107/54 102/55 O2 Sat by Pulse 99 99 99 Oximetry 11/14/18 11/14/18 11/14/18 03:20 03:30 03:40 Temperature Pulse Rate 95 H 95 H 96 H Pulse Rate [ Right Radial] Respiratory 23 24 26 H Rate Blood Pressure 101/56 101/54 103/55 O2 Sat by Pulse 99 100 98 Oximetry 11/14/18 11/14/18 11/14/18 03:50 04:00 04:10 Temperature Pulse Rate 96 H 97 H 97 H Pulse Rate [ 98 H Right Radial] Respiratory 27 H 26 H 29 H Rate Blood Pressure 100/56 105/55 104/54 O2 Sat by Pulse 98 98 97 Oximetry 11/14/18 11/14/18 11/14/18 04:20 04:30 04:40 Temperature Pulse Rate 98 H 98 H 99 H Pulse Rate [ Right Radial] Respiratory 28 H 28 H 30 H Rate Blood Pressure 102/54 104/55 103/52 O2 Sat by Pulse 97 97 98 Oximetry 11/14/18 11/14/18 11/14/18 04:50 05:00 05:10 Temperature Pulse Rate 100 H 100 H 100 H Pulse Rate [ Right Radial] Respiratory 30 H 31 H 31 H Rate Blood Pressure 107/55 102/54 108/56 O2 Sat by Pulse 98 98 97 Oximetry 11/14/18 11/14/18 11/14/18 05:20 05:30 05:40 Temperature Pulse Rate 100 H 100 H 100 H Pulse Rate [ Right Radial] Respiratory 31 H 31 H 32 H Rate Blood Pressure 107/54 105/53 102/54 O2 Sat by Pulse 97 97 96 Oximetry 11/14/18 11/14/18 11/14/18 05:50 06:00 06:10 Temperature Pulse Rate 100 H 100 H 100 H Pulse Rate [ 98 H Right Radial] Respiratory 33 H 32 H 31 H Rate Blood Pressure 104/56 101/51 108/56 O2 Sat by Pulse 96 96 96 Oximetry 11/14/18 11/14/18 11/14/18 06:20 06:30 06:40 Temperature Pulse Rate 100 H 102 H 102 H Pulse Rate [ Right Radial] Respiratory 33 H 33 H 33 H Rate Blood Pressure 101/52 106/56 110/60 O2 Sat by Pulse 95 94 95 Oximetry 11/14/18 11/14/18 11/14/18 06:50 07:00 07:06 Temperature Pulse Rate 101 H 100 H 100 H Pulse Rate [ Right Radial] Respiratory 33 H 32 H Rate Blood Pressure 100/56 94/49 94/49 O2 Sat by Pulse 95 95 95 Oximetry 11/14/18 11/14/18 11/14/18 07:10 07:20 07:30 Temperature Pulse Rate 100 H 98 H 92 H Pulse Rate [ Right Radial] Respiratory 33 H 32 H 32 H Rate Blood Pressure 90/48 90/43 67/40 O2 Sat by Pulse 95 95 93 Oximetry 11/14/18 11/14/18 11/14/18 07:40 07:50 08:00 Temperature Pulse Rate 85 93 H 97 H Pulse Rate [ Right Radial] Respiratory 27 H 30 H 33 H Rate Blood Pressure 56/35 78/47 91/53 O2 Sat by Pulse 92 92 94 Oximetry 11/14/18 11/14/18 11/14/18 08:10 08:20 08:30 Temperature Pulse Rate 82 94 H 97 H Pulse Rate [ Right Radial] Respiratory 28 H 33 H 33 H Rate Blood Pressure 66/40 84/51 84/54 O2 Sat by Pulse 73 L 92 92 Oximetry 11/14/18 11/14/18 11/14/18 08:40 08:50 09:00 Temperature Pulse Rate 94 H 94 H 97 H Pulse Rate [ Right Radial] Respiratory 34 H 33 H 34 H Rate Blood Pressure 96/47 81/53 81/53 O2 Sat by Pulse 92 92 93 Oximetry 11/14/18 11/14/18 11/14/18 09:10 09:20 09:30 Temperature Pulse Rate 93 H 93 H 91 H Pulse Rate [ Right Radial] Respiratory 34 H 34 H 34 H Rate Blood Pressure 96/44 88/49 85/46 O2 Sat by Pulse 94 94 94 Oximetry 11/14/18 11/14/18 11/14/18 09:40 09:50 10:00 Temperature Pulse Rate 93 H 93 H 95 H Pulse Rate [ Right Radial] Respiratory 34 H 34 H 34 H Rate Blood Pressure 85/46 86/48 87/44 O2 Sat by Pulse 94 95 95 Oximetry 11/14/18 11/14/18 11/14/18 10:10 10:20 10:30 Temperature Pulse Rate 93 H 93 H 92 H Pulse Rate [ Right Radial] Respiratory 34 H 34 H 34 H Rate Blood Pressure 80/53 81/49 79/50 O2 Sat by Pulse 95 95 95 Oximetry Constitutional: comatose (secondary to metabolic state and sedation) Eyes: non-icteric ENT: other (orally intubated and critically ill on vent) Neck: supple Ascultation: Bilateral: clear (anteriorly) Percussion: Bilateral: not dull Tactile fremitus: Bilateral: normal Cardiovascular: regular rate and rhythm Gastrointestinal: other (post surgical changes with wound vac in place) Extremities: cool Neurologic: unable to assess CBC and BMP: 11/14/18 05:15 11/14/18 05:20 ABG, PT/INR, D-dimer: ABG POC ABG pH 6.943 (7.35-7.45) L 11/14/18 01:25 POC ABG pCO2 38.2 (35-45) 11/14/18 01:25 POC ABG pO2 95 (80-105) 11/14/18 01:25 POC ABG HCO3 8.3 11/14/18 01:25 POC ABG Total CO2 9 11/14/18 01:25 POC ABG O2 Sat 91 11/14/18 01:25 PT/INR, D-dimer PT 22.2 Sec. (12.2-14.9) H 11/13/18 00:59 INR 1.90 (0.87-1.13) H 11/13/18 00:59 Abnormal lab findings: Abnormal Labs 11/12/18 11/12/18 11/12/18 21:50 21:50 Unknown WBC 4.4 L Hgb 11.3 L Hct MCV 77 L MCH 24 L MCHC 31 L RDW 23.5 H Plt Count 73 L Lymph # 0.8 L Seg Neutrophils % 75.7 H Seg Neuts % (Manual) Lymphocytes % (Manual) Monocytes % (Manual) Lymphocytes # (Manual) PT 20.5 H INR 1.71 H POC ABG pH Sodium Potassium 3.1 L Chloride Carbon Dioxide Creatinine 0.6 L Glucose 124 H POC Glucose Lactic Acid Calcium Total Bilirubin Direct Bilirubin AST ALT Alkaline Phosphatase Total Creatine Kinase Total Protein Albumin 11/12/18 11/13/18 11/13/18 Unknown 00:59 00:59 WBC Hgb 11.2 L Hct MCV MCH MCHC RDW Plt Count 75 L Lymph # Seg Neutrophils % Seg Neuts % (Manual) Lymphocytes % (Manual) Monocytes % (Manual) Lymphocytes # (Manual) PT 22.2 H INR 1.90 H POC ABG pH Sodium Potassium Chloride Carbon Dioxide Creatinine Glucose POC Glucose Lactic Acid Calcium Total Bilirubin 2.50 H Direct Bilirubin 0.9 H AST 77 H ALT Alkaline Phosphatase Total Creatine Kinase Total Protein Albumin 3.2 L 11/13/18 11/13/18 11/13/18 06:56 06:56 06:56 WBC 3.6 L Hgb 10.7 L Hct 34.8 L MCV 77 L MCH 24 L MCHC 31 L RDW 22.7 H Plt Count 75 L Lymph # Seg Neutrophils % Seg Neuts % (Manual) Lymphocytes % (Manual) 3.0 L Monocytes % (Manual) 10.0 H Lymphocytes # (Manual) 0.1 L PT INR POC ABG pH Sodium 136 L Potassium 3.3 L Chloride Carbon Dioxide 13 L D Creatinine 1.6 H D Glucose POC Glucose Lactic Acid Calcium 7.8 L Total Bilirubin Direct Bilirubin AST ALT Alkaline Phosphatase Total Creatine Kinase 185 H Total Protein Albumin 11/13/18 11/13/18 11/13/18 12:02 12:02 14:45 WBC Hgb Hct MCV MCH MCHC RDW Plt Count Lymph # Seg Neutrophils % Seg Neuts % (Manual) Lymphocytes % (Manual) Monocytes % (Manual) Lymphocytes # (Manual) PT INR POC ABG pH Sodium Potassium Chloride Carbon Dioxide Creatinine Glucose POC Glucose Lactic Acid 12.90 H* 12.60 H* Calcium Total Bilirubin Direct Bilirubin AST ALT Alkaline Phosphatase Total Creatine Kinase 290 H Total Protein Albumin 11/13/18 11/14/18 11/14/18 18:00 01:08 01:25 WBC Hgb Hct MCV MCH MCHC RDW Plt Count Lymph # Seg Neutrophils % Seg Neuts % (Manual) Lymphocytes % (Manual) Monocytes % (Manual) Lymphocytes # (Manual) PT INR POC ABG pH 6.943 L Sodium Potassium Chloride Carbon Dioxide Creatinine Glucose POC Glucose Lactic Acid 15.30 H* 11.30 H* Calcium Total Bilirubin Direct Bilirubin AST ALT Alkaline Phosphatase Total Creatine Kinase Total Protein Albumin 11/14/18 11/14/18 11/14/18 03:00 04:47 05:15 WBC 14.3 H Hgb 9.5 L Hct 33.5 L MCV MCH 24 L MCHC 29 L RDW 23.8 H Plt Count 76 L Lymph # Seg Neutrophils % Seg Neuts % (Manual) 38.0 L Lymphocytes % (Manual) 3.0 L Monocytes % (Manual) Lymphocytes # (Manual) 0.4 L PT INR POC ABG pH Sodium Potassium Chloride Carbon Dioxide Creatinine Glucose POC Glucose Lactic Acid 11.10 H* 11.10 H* Calcium Total Bilirubin Direct Bilirubin AST ALT Alkaline Phosphatase Total Creatine Kinase Total Protein Albumin 11/14/18 11/14/18 11/14/18 05:15 05:20 06:06 WBC Hgb Hct MCV MCH MCHC RDW Plt Count Lymph # Seg Neutrophils % Seg Neuts % (Manual) Lymphocytes % (Manual) Monocytes % (Manual) Lymphocytes # (Manual) PT INR POC ABG pH Sodium Potassium 5.6 H D Chloride 107.2 H Carbon Dioxide 10 L Creatinine 2.5 H D Glucose 11 L* POC Glucose Lactic Acid 12.10 H* 12.30 H* Calcium 7.1 L Total Bilirubin 5.20 H Direct Bilirubin AST 2651 H ALT 437 H Alkaline Phosphatase 34 L Total Creatine Kinase Total Protein 5.6 L D Albumin 2.6 L 11/14/18 11/14/18 11/14/18 06:57 08:30 10:52 WBC Hgb Hct MCV MCH MCHC RDW Plt Count Lymph # Seg Neutrophils % Seg Neuts % (Manual) Lymphocytes % (Manual) Monocytes % (Manual) Lymphocytes # (Manual) PT INR POC ABG pH Sodium Potassium Chloride Carbon Dioxide Creatinine Glucose POC Glucose 60 L < 40 L 68 L Lactic Acid Calcium Total Bilirubin Direct Bilirubin AST ALT Alkaline Phosphatase Total Creatine Kinase Total Protein Albumin Chest x-ray: image reviewed (expiratory film but clear, mild cardiomegaly but this is a portable film)
[2018-11-14] MEDS: ZOSYN/NS 2.25 GM/50ML 2.25 GM/50 ML BAG IV SCH ×2 (12:59→18:01)
[2018-11-14] MEDS: NACL 0.9% 1000 ML 1,000 ML IV SCH ×2 (13:00→14:07)
--- NOTE | 2018-11-14 13:12 | Progress Note ---
Assessment and Plan - Patient Problems (1) Duodenal ulcer perforation Current Visit: Yes Status: Acute Plan to address problem: Pt in critical condition. s/p ex lap, duodenal repair with Javid patch, pyloric exclusion, liver bx, and AbThera placement - 11/13/18 - POD#1. Pt needs very aggressive resuscitation. Currently in [facility]. Discussed case with Dr. Andre. Suggested that periodically, part of the vac drainage volume could be replaced with Albumin as we would do in a paracentesis situation. If the patient stabilizes, would like to take him back to OR on Thursday for washout, re-evaluation of repair and other organs, creation of gastro-intestinal bypass. Will need to do a 2 physician consent as there is no family available. Very poor prognosis. Subjective Date of service: 11/14/18 Patient Reports: Positive: other (additional pressor added last night) Objective Vital Signs - 12hr 11/14/18 11/14/18 11/14/18 01:10 01:20 01:30 Temperature Pulse Rate 90 89 88 Pulse Rate [ Right Radial] Respiratory 18 18 18 Rate Blood Pressure 77/50 80/47 84/48 O2 Sat by Pulse 96 97 97 Oximetry 11/14/18 11/14/18 11/14/18 01:35 01:38 01:40 Temperature 97.1 F L Pulse Rate 94 H 97 H 94 H Pulse Rate [ Right Radial] Respiratory 18 18 18 Rate Blood Pressure 92/50 84/48 92/50 O2 Sat by Pulse 99 98 98 Oximetry 11/14/18 11/14/18 11/14/18 01:50 02:00 02:10 Temperature Pulse Rate 93 H 92 H 91 H Pulse Rate [ Right Radial] Respiratory 19 18 18 Rate Blood Pressure 92/50 87/44 86/46 O2 Sat by Pulse 100 99 99 Oximetry 11/14/18 11/14/18 11/14/18 02:20 02:30 02:40 Temperature Pulse Rate 91 H 91 H 92 H Pulse Rate [ Right Radial] Respiratory 19 20 19 Rate Blood Pressure 89/49 92/51 94/52 O2 Sat by Pulse 98 98 98 Oximetry 11/14/18 11/14/18 11/14/18 02:50 03:00 03:10 Temperature Pulse Rate 94 H 94 H 95 H Pulse Rate [ Right Radial] Respiratory 22 20 24 Rate Blood Pressure 102/54 107/54 102/55 O2 Sat by Pulse 99 99 99 Oximetry 11/14/18 11/14/18 11/14/18 03:20 03:30 03:40 Temperature Pulse Rate 95 H 95 H 96 H Pulse Rate [ Right Radial] Respiratory 23 24 26 H Rate Blood Pressure 101/56 101/54 103/55 O2 Sat by Pulse 99 100 98 Oximetry 11/14/18 11/14/18 11/14/18 03:50 04:00 04:10 Temperature Pulse Rate 96 H 97 H 97 H Pulse Rate [ 98 H Right Radial] Respiratory 27 H 26 H 29 H Rate Blood Pressure 100/56 105/55 104/54 O2 Sat by Pulse 98 98 97 Oximetry 11/14/18 11/14/18 11/14/18 04:20 04:30 04:40 Temperature Pulse Rate 98 H 98 H 99 H Pulse Rate [ Right Radial] Respiratory 28 H 28 H 30 H Rate Blood Pressure 102/54 104/55 103/52 O2 Sat by Pulse 97 97 98 Oximetry 11/14/18 11/14/18 11/14/18 04:50 05:00 05:10 Temperature Pulse Rate 100 H 100 H 100 H Pulse Rate [ Right Radial] Respiratory 30 H 31 H 31 H Rate Blood Pressure 107/55 102/54 108/56 O2 Sat by Pulse 98 98 97 Oximetry 11/14/18 11/14/18 11/14/18 05:20 05:30 05:40 Temperature Pulse Rate 100 H 100 H 100 H Pulse Rate [ Right Radial] Respiratory 31 H 31 H 32 H Rate Blood Pressure 107/54 105/53 102/54 O2 Sat by Pulse 97 97 96 Oximetry 11/14/18 11/14/18 11/14/18 05:50 06:00 06:10 Temperature Pulse Rate 100 H 100 H 100 H Pulse Rate [ 98 H Right Radial] Respiratory 33 H 32 H 31 H Rate Blood Pressure 104/56 101/51 108/56 O2 Sat by Pulse 96 96 96 Oximetry 11/14/18 11/14/18 11/14/18 06:20 06:30 06:40 Temperature Pulse Rate 100 H 102 H 102 H Pulse Rate [ Right Radial] Respiratory 33 H 33 H 33 H Rate Blood Pressure 101/52 106/56 110/60 O2 Sat by Pulse 95 94 95 Oximetry 11/14/18 11/14/18 11/14/18 06:50 07:00 07:06 Temperature Pulse Rate 101 H 100 H 100 H Pulse Rate [ Right Radial] Respiratory 33 H 32 H Rate Blood Pressure 100/56 94/49 94/49 O2 Sat by Pulse 95 95 95 Oximetry 11/14/18 11/14/18 11/14/18 07:10 07:20 07:30 Temperature Pulse Rate 100 H 98 H 92 H Pulse Rate [ Right Radial] Respiratory 33 H 32 H 32 H Rate Blood Pressure 90/48 90/43 67/40 O2 Sat by Pulse 95 95 93 Oximetry 11/14/18 11/14/18 11/14/18 07:40 07:50 08:00 Temperature Pulse Rate 85 93 H 97 H Pulse Rate [ Right Radial] Respiratory 27 H 30 H 33 H Rate Blood Pressure 56/35 78/47 91/53 O2 Sat by Pulse 92 92 94 Oximetry 11/14/18 11/14/18 11/14/18 08:10 08:20 08:30 Temperature Pulse Rate 82 94 H 97 H Pulse Rate [ Right Radial] Respiratory 28 H 33 H 33 H Rate Blood Pressure 66/40 84/51 84/54 O2 Sat by Pulse 73 L 92 92 Oximetry 11/14/18 11/14/18 11/14/18 08:40 08:50 09:00 Temperature Pulse Rate 94 H 94 H 97 H Pulse Rate [ Right Radial] Respiratory 34 H 33 H 34 H Rate Blood Pressure 96/47 81/53 81/53 O2 Sat by Pulse 92 92 93 Oximetry 11/14/18 11/14/18 11/14/18 09:10 09:20 09:30 Temperature Pulse Rate 93 H 93 H 91 H Pulse Rate [ Right Radial] Respiratory 34 H 34 H 34 H Rate Blood Pressure 96/44 88/49 85/46 O2 Sat by Pulse 94 94 94 Oximetry 11/14/18 11/14/18 11/14/18 09:40 09:50 10:00 Temperature Pulse Rate 93 H 93 H 95 H Pulse Rate [ Right Radial] Respiratory 34 H 34 H 34 H Rate Blood Pressure 85/46 86/48 87/44 O2 Sat by Pulse 94 95 95 Oximetry 11/14/18 11/14/18 11/14/18 10:10 10:20 10:30 Temperature Pulse Rate 93 H 93 H 92 H Pulse Rate [ Right Radial] Respiratory 34 H 34 H 34 H Rate Blood Pressure 80/53 81/49 79/50 O2 Sat by Pulse 95 95 95 Oximetry - General physical appearance other (appears ill with mottled skin) - Respiratory normal expansion - Abdomen soft, other (AbThera in place with thin, perkins drainage (similar to the ascites that was found in OR)) - Integumentary other (diffuse mottling of skin) - Labs 11/14/18 05:15 11/14/18 05:20 Diabetes panel 11/14/18 Range/Units 05:20 Sodium 142 (137-145) mmol/L Potassium 5.6 H D (3.6-5.0) mmol/L Chloride 107.2 H (98-107) mmol/L Carbon Dioxide 10 L (22-30) mmol/L BUN 16 (9-20) mg/dL Creatinine 2.5 H D (0.8-1.5) mg/dL Glucose 11 L* (75-100) mg/dL Calcium 7.1 L (8.4-10.2) mg/dL AST 2651 H (5-40) units/L ALT 437 H (7-56) units/L Alkaline Phosphatase 34 L (35-129) units/L Total Protein 5.6 L D (6.3-8.2) g/dL Albumin 2.6 L (3.9-5) g/dL Calcium panel 11/14/18 Range/Units 05:20 Calcium 7.1 L (8.4-10.2) mg/dL Albumin 2.6 L (3.9-5) g/dL Pituitary panel 11/14/18 Range/Units 05:20 Sodium 142 (137-145) mmol/L Potassium 5.6 H D (3.6-5.0) mmol/L Chloride 107.2 H (98-107) mmol/L Carbon Dioxide 10 L (22-30) mmol/L BUN 16 (9-20) mg/dL Creatinine 2.5 H D (0.8-1.5) mg/dL Glucose 11 L* (75-100) mg/dL Calcium 7.1 L (8.4-10.2) mg/dL Adrenal panel 11/14/18 Range/Units 05:20 Sodium 142 (137-145) mmol/L Potassium 5.6 H D (3.6-5.0) mmol/L Chloride 107.2 H (98-107) mmol/L Carbon Dioxide 10 L (22-30) mmol/L BUN 16 (9-20) mg/dL Creatinine 2.5 H D (0.8-1.5) mg/dL Glucose 11 L* (75-100) mg/dL Calcium 7.1 L (8.4-10.2) mg/dL Total Bilirubin 5.20 H (0.1-1.2) mg/dL AST 2651 H (5-40) units/L ALT 437 H (7-56) units/L Alkaline Phosphatase 34 L (35-129) units/L Total Protein 5.6 L D (6.3-8.2) g/dL Albumin 2.6 L (3.9-5) g/dL - Imaging Chest x-ray: report reviewed, image reviewed
[2018-11-14] MEDS ORDERED: SODIUM BICARBONATE IV STA (13:44)
--- NOTE | 2018-11-14 13:44 | Operative Report ---
PREOPERATIVE DIAGNOSIS: Duodenal perforation. POSTOPERATIVE DIAGNOSES: 1. Duodenal perforation. 2. Large amount of ascites. 3. Very hard liver with multiple yellow implants about 1-2 mm in diameter throughout the entire liver. PROCEDURES: 1. Exploratory laparotomy. 2. Open repair of duodenal perforation with Javid patch. 3. Wedge biopsy of liver. 4. Pyloric exclusion. Please use CPT CODE 50419. 5. Negative pressure wound therapy greater than 50 cm, CPT CODE 38180. ATTENDING PHYSICIAN: Markie Tamayo MD ANESTHESIA: General. ESTIMATED BLOOD LOSS: Less than 25 mL. FLUIDS: 800 mL of crystalloid, 500 mL Hespan. Urine output minimal, ascites in the abdomen 4,280 mL. FINDINGS: Large amount of ascites in the abdominal cavity. There is no purulent fluid. There was no food or particulate matter. A 1.5 cm perforation was noted at the first part of the duodenum. This area and the surrounding area was densely fibrotic. The intestines were viable, but severely inflamed as was the mesentery. Blood flow appeared to be intact at that point. Colon was normal. Omentum had a very unusual appearance. Rather than the bright yellow it was a bland maroon type color similar to ischemic muscle. The liver was very firm with multiple small yellow nodules throughout the liver that measured about 1-2 mm in diameter. Stomach appeared normal. No other abnormalities were identified. Gallbladder appeared normal. SPECIMEN: Culture swabs were taken of the fluid. 2 x 1 x 1 cm liver segment was taken from the left lobe along the edge. DRAINS: ABThera. COMPLICATIONS: None. The patient is stable transport to Recovery. INDICATIONS: This is a 63-year-old male, who presented initially what appeared to be chest pain. Upon further evaluation and review it seemed that perhaps he was initially having more upper abdominal pain. Based on my evaluation, I thought that most likely the patient had a duodenal perforation and that was the cause of initial pain and subsequent generalized abdominal discomfort. I explained my concerns to him and gave him the options that we could proceed directly to surgery as that is what I was concerned about, but he is at high risk. The other option was to repeat the CT scan with oral contrast, which we had not done before to see if there was indeed a leak. The patient felt as though his pain was not getting worse. He also felt that he only had pain if he moved and he would prefer to make sure there was a hole before going to surgery. Therefore, CT scan was ordered. There was no leakage of contrast; however, there was confirmation of the free air and concern about possible intestinal ischemia. I had anticipated that we would most likely be going to the operating room, so I had already consented him for surgery. Procedure, risks, benefits were explained to the patient. Risks included but were not limited to infection, bleeding, pain, injury to surrounding structures, possible need for further operations, possible . The patient understood and consented. Once we get that CT report, then we proceeded to surgery, which he was in agreement with earlier in the day when we are going to surgery his mental status seemed to be altered at this point. DESCRIPTION OF PROCEDURE: The patient was brought to the operating room. He was intubated on the transport bed. After successful intubation, the patient was moved over to the operating room table. Abdomen was shaved. Pressure points were padded, sterile prep and drape was performed. Antibiotics were already given. SCDs were in place. Timeout was called. Because of the patient's coagulopathy, I chose to make the initial incision with electrocautery to minimize bleeding. This was successful. We entered the peritoneal cavity safely. A large amount of ascites was identified. It had a ten appearance to it. It was very thin. There was no particulate matter. There was no odor, no purulence was noted. We suctioned out the abdomen and then proceeded to place our Bookwalter retractor and I took down the falciform ligament to give us optimal exposure. Ligament was clamped, divided, and ligated with 3-0 silk suture using a Jose E stitch. We then proceeded to explore the abdomen. Immediately, we noticed a very hard and firm liver. Our plan was to get a wedge biopsy if everything was going smoothly during the case towards the end. I examined the small bowel. We ran it completely. It appeared uniformly inflamed throughout; however, it all appeared viable. I did not see any areas of ischemia. The colon appeared okay. The omentum as noted above had a very unusual appearance to it and that compared to the normal bright yellow it was a very thin bland maroon color. Stomach appeared viable. Spleen was okay. Gallbladder was fine. During the exploration, I did identify the duodenal perforation. The area was such that the duodenum and the tissue just superior was one fibrotic mass. It almost appeared as though the duodenum may have pulled itself inferiorly, which then gradually peeled away from the other fibrotic tissue that it was adhered to. I did not find any other areas that could explain his illness. This fits with her history. My plan at this point was to do a pyloric exclusion and to do a Javid patch repair. I thought that would give him the best chance to get this area under control. If he improved with resuscitation, then we will bring him back on a later date for wound VAC change, reevaluation, and a gastrojejunostomy. I did make sure the NG tube was in good position. Going through the gastrocolic ligament and getting into the lesser sac, I got around the stomach. At the level of the pylorus I was able to get to the other side safely. I passed a TA stapler with a green load across the pylorus and fired it. I did hold pressure before firing of the stapler for about 10 seconds to get some of the edema and then I fired the stapler. We had a very good staple line with excellent hemostasis that was all the way across. I then proceeded to plan a repair of the duodenum. My plan was to incorporate the omentum. I made sure that we had a long segment of omentum that easily lay over that area and then taking multiple stitches going through the omentum, taking both edges of the duodenal perforation and coming back through the omentum, multiple individual stitches were placed. The omentum was then pushed down over the perforation site and then the sutures were tied down securely. The abdomen was thoroughly washed out. Please note there was no tension on the omentum itself. The abdomen was thoroughly washed out. I then proceeded with great caution to take a sample of the liver edge. I was very worried due to his coagulopathy. Using the LigaSure device and the Bovie at a very high setting I was able to get a significant specimen to evaluate what all the multiple nodules were and was very concerned that this could be widespread cancer. Abdomen continued to be washed out. We observed both the area of the repair and the liver edge to make sure there is no bleeding or continued bile leak. I did not see anything. As a precaution I packed one lap sponge over the omental repair and then packed into the lap sponge under the liver edge to put pressure on the biopsy site. ABThera dressing was placed. Overlying adhesives were placed. We obtained a good seal. The patient tolerated the procedure as well as could be expected. All counts were correct at the end of the case, we did account for two lap sponges, which were in the right upper quadrant. There was no family for me to talk to. I do not have any contact numbers. The patient was eventually returned to the ICU. JOB# [id number] KIRSTY/JEFFY
[2018-11-14] MEDS: DOBUTREX DRIP 500MG/D5W 250ML 500 MG/250 ML BAG IV SCH (14:13)
[2018-11-14] MEDS ORDERED: INTROPIN DRIP 800 MG/D5W 250 ML 800 MG/250 ML BAG IV ONE (15:36)
[2018-11-14] MEDS: INTROPIN DRIP 800 MG/D5W 250 ML 800 MG/250 ML BAG IV SCH (16:00)
--- NOTE | 2018-11-14 17:42 | Progress Note ---
Assessment and Plan Assessment and plan: Sepsis with septic shock secondary to perforated duodenal ulcer - Free air in the peritoneum, surgery was consulted and after extensive discussion with the patient surgery was done and the perforation was patched -Patient is septic with lactic acid level 15, patient is on IV antibiotics including antifungals -Patient is maxed out with 3 pressors and patient's blood pressure is still low Respiratory failure, patient is intubated and on mechanical ventilation Severe lactic acidosis, metabolic acidosis; patient was given bicarbonate despite that his pH is below 7 Cirrhosis with ascites; about 4 L off athletic fluid was drained during surgery, there was no pus Cardiomyopathy; cardiology was consulted and noting much can be done I have extensive discussion with his sister and she knows about his condition and she wants him to be full code, patient usually said he wants to live. Patient has 2 grown children and doesn't have any relation with them because of his behavior, alcoholism and drug use. CODE STATUS; FULL Prognosis; very poor The high probability of a clinically significant, sudden or life threatening deterioration of the [cardiovascular, respiratory, neurology, GI] system(s) requ ired my full and direct attention, intervention and personal management. The aggregate critical care time was [45] minutes. This time is in addition to time spent performing reported procedures but includes the following: [x] Data Review and interpretation [x] Patient assessment and monitoring of vital signs [x] Documentation [x] Medication orders and management History Interval history: Patient was seen and evaluated this morning, patient is in distress, he was intubated and on mechanical ventilation, patient is off pressors and didn't wake up. I have discussed about the patient with his sister and she usually said wants to live. She said he has been abusing his body since he was 13. He was alcohol and drug abuser. Hospitalist Physical - Physical exam Narrative exam: Patient is in cardiopulmonary distress. Patient is intubated and on mechanical ventilation The patient appeared well nourished and normally developed. Vital signs as documented. Patient is on 3 pressors and blood pressures dropping. Head exam is unremarkable. No scleral icterus . Neck is without jugular venous distension, thyromegaly, or carotid bruits. Lungs are clear to auscultation. Cardiac exam reveals regular rate and Rhythm. Patient is on 3 pressors and blood pressures dropping. Abdominal exam reveals laparoscopic surgical incision draining tube is in place. Extremities are nonedematous and both femoral and pedal pulses are normal. [employer]: Comatose. - Constitutional Vitals: Temp Pulse Resp BP Pulse Ox 97.1 F L 99 H 29 H 111/33 100 11/14/18 01:35 11/14/18 17:10 11/14/18 17:10 11/14/18 17:10 11/14/18 17:10 General appearance: Present: no acute distress, well-nourished Results - Labs CBC & Chem 7: 11/14/18 05:15 11/14/18 05:20 Labs: Laboratory Last Values WBC 14.3 K/mm3 (4.5-11.0) H 11/14/18 05:15 RBC 3.95 M/mm3 (3.65-5.03) 11/14/18 05:15 Hgb 9.5 gm/dl (11.8-15.2) L 11/14/18 05:15 Hct 33.5 % (35.5-45.6) L 11/14/18 05:15 MCV 85 fl (84-94) 11/14/18 05:15 MCH 24 pg (28-32) L 11/14/18 05:15 MCHC 29 % (32-34) L 11/14/18 05:15 RDW 23.8 % (13.2-15.2) H 11/14/18 05:15 Plt Count 76 K/mm3 (140-440) L 11/14/18 05:15 Lymph % (Auto) 17.8 % (13.4-35.0) 11/12/18 21:50 Hooker % (Auto) 5.3 % (0.0-7.3) 11/12/18 21:50 Eos % (Auto) 0.7 % (0.0-4.3) 11/12/18 21:50 Baso % (Auto) 0.5 % (0.0-1.8) 11/12/18 21:50 Lymph # 0.8 K/mm3 (1.2-5.4) L 11/12/18 21:50 Hooker # 0.2 K/mm3 (0.0-0.8) 11/12/18 21:50 Eos # 0.0 K/mm3 (0.0-0.4) 11/12/18 21:50 Baso # 0.0 K/mm3 (0.0-0.1) 11/12/18 21:50 Add Manual Diff Complete 11/14/18 05:15 Total Counted 100 11/14/18 05:15 Seg Neutrophils % 75.7 % (40.0-70.0) H 11/12/18 21:50 Seg Neuts % (Manual) 38.0 % (40.0-70.0) L 11/14/18 05:15 Band Neutrophils % 43.0 % 11/14/18 05:15 Lymphocytes % (Manual) 3.0 % (13.4-35.0) L 11/14/18 05:15 Reactive Lymphs % (Man) 0 % 11/14/18 05:15 Monocytes % (Manual) 4.0 % (0.0-7.3) 11/14/18 05:15 Eosinophils % (Manual) 0 % (0.0-4.3) 11/14/18 05:15 Basophils % (Manual) 0 % (0.0-1.8) 11/14/18 05:15 Metamyelocytes % 8.0 % 11/14/18 05:15 Myelocytes % 4.0 % 11/14/18 05:15 Promyelocytes % 0 % 11/14/18 05:15 Blast Cells % 0 % 11/14/18 05:15 Nucleated RBC % Not Reportable 11/14/18 05:15 Seg Neutrophils # 3.3 K/mm3 (1.8-7.7) 11/12/18 21:50 Seg Neutrophils # Man 5.4 K/mm3 (1.8-7.7) 11/14/18 05:15 Band Neutrophils # 6.1 K/mm3 11/14/18 05:15 Lymphocytes # (Manual) 0.4 K/mm3 (1.2-5.4) L 11/14/18 05:15 Abs React Lymphs (Man) 0.0 K/mm3 11/14/18 05:15 Monocytes # (Manual) 0.6 K/mm3 (0.0-0.8) 11/14/18 05:15 Eosinophils # (Manual) 0.0 K/mm3 (0.0-0.4) 11/14/18 05:15 Basophils # (Manual) 0.0 K/mm3 (0.0-0.1) 11/14/18 05:15 Metamyelocytes # 1.1 K/mm3 11/14/18 05:15 Myelocytes # 0.6 K/mm3 11/14/18 05:15 Promyelocytes # 0.0 K/mm3 11/14/18 05:15 Blast Cells # 0.0 K/mm3 11/14/18 05:15 WBC Morphology Not Reportable 11/14/18 05:15 Hypersegmented Neuts Not Reportable 11/14/18 05:15 Hyposegmented Neuts Not Reportable 11/14/18 05:15 Hypogranular Neuts Not Reportable 11/14/18 05:15 Smudge Cells Not Reportable 11/14/18 05:15 Toxic Granulation Not Reportable 11/14/18 05:15 Toxic Vacuolation Not Reportable 11/14/18 05:15 Dohle Bodies Not Reportable 11/14/18 05:15 Pelger-Huet Anomaly Not Reportable 11/14/18 05:15 April Rods Not Reportable 11/14/18 05:15 Platelet Estimate Consistent w auto 11/14/18 05:15 Clumped Platelets Not Reportable 11/14/18 05:15 Plt Clumps, EDTA Not Reportable 11/14/18 05:15 Large Platelets Not Reportable 11/14/18 05:15 Giant Platelets Not Reportable 11/14/18 05:15 Platelet Satelliting Not Reportable 11/14/18 05:15 Plt Morphology Comment Not Reportable 11/14/18 05:15 RBC Morphology Not Reportable 11/14/18 05:15 Dimorphic RBCs Not Reportable 11/14/18 05:15 Polychromasia Not Reportable 11/14/18 05:15 Hypochromasia Not Reportable 11/14/18 05:15 Poikilocytosis Not Reportable 11/14/18 05:15 Anisocytosis 1+ 11/14/18 05:15 Microcytosis Not Reportable 11/14/18 05:15 Macrocytosis Not Reportable 11/14/18 05:15 Spherocytes Not Reportable 11/14/18 05:15 Pappenheimer Bodies Not Reportable 11/14/18 05:15 Sickle Cells Not Reportable 11/14/18 05:15 Target Cells Not Reportable 11/14/18 05:15 Tear Drop Cells Not Reportable 11/14/18 05:15 Ovalocytes Not Reportable 11/14/18 05:15 Helmet Cells Not Reportable 11/14/18 05:15 Gerardo[place] Bodies Not Reportable 11/14/18 05:15 [place] Rings Not Reportable 11/14/18 05:15 Radha Cells Not Reportable 11/14/18 05:15 Bite Cells Not Reportable 11/14/18 05:15 Crenated Cell Not Reportable 11/14/18 05:15 Elliptocytes 1+ 11/14/18 05:15 Acanthocytes (Spur) Not Reportable 11/14/18 05:15 Rouleaux Not Reportable 11/14/18 05:15 Hemoglobin C Crystals Not Reportable 11/14/18 05:15 Schistocytes Not Reportable 11/14/18 05:15 Malaria parasites Not Reportable 11/14/18 05:15 Marco Antonio Bodies Not Reportable 11/14/18 05:15 Hem Pathologist Commnt No 11/14/18 05:15 PT 22.2 Sec. (12.2-14.9) H 11/13/18 00:59 INR 1.90 (0.87-1.13) H 11/13/18 00:59 APTT 30.3 Sec. (24.2-36.6) 11/13/18 00:59 POC ABG pH 6.897 (7.35-7.45) L 11/14/18 12:27 POC ABG pCO2 24.7 (35-45) L 11/14/18 12:27 POC ABG pO2 79 (80-105) L 11/14/18 12:27 POC ABG HCO3 4.8 11/14/18 12:27 POC ABG Total CO2 6 11/14/18 12:27 POC ABG O2 Sat 83 11/14/18 12:27 POC ABG Base Excess -28 11/14/18 12:27 FiO2 70 % 11/14/18 12:27 Sodium 142 mmol/L (137-145) 11/14/18 05:20 Potassium 5.6 mmol/L (3.6-5.0) H D 11/14/18 05:20 Chloride 107.2 mmol/L (98-107) H 11/14/18 05:20 Carbon Dioxide 10 mmol/L (22-30) L 11/14/18 05:20 Anion Gap 30 mmol/L 11/14/18 05:20 BUN 16 mg/dL (9-20) 11/14/18 05:20 Creatinine 2.5 mg/dL (0.8-1.5) H D 11/14/18 05:20 Estimated GFR 26 ml/min 11/14/18 05:20 BUN/Creatinine Ratio 6 % 11/14/18 05:20 Glucose 11 mg/dL (75-100) L* 11/14/18 05:20 POC Glucose 67 (70-105) L 11/14/18 15:04 Lactic Acid 15.00 mmol/L (0.7-2.0) H* 11/14/18 14:20 Calcium 7.1 mg/dL (8.4-10.2) L 11/14/18 05:20 Magnesium 2.00 mg/dL (1.7-2.3) 11/13/18 06:56 Total Bilirubin 5.20 mg/dL (0.1-1.2) H 11/14/18 05:20 Direct Bilirubin 0.9 mg/dL (0-0.2) H 11/12/18 Unknown Indirect Bilirubin 1.6 mg/dL 11/12/18 Unknown AST 2651 units/L (5-40) H 11/14/18 05:20 ALT 437 units/L (7-56) H 11/14/18 05:20 Alkaline Phosphatase 34 units/L (35-129) L 11/14/18 05:20 Total Creatine Kinase 290 units/L (55-170) H 11/13/18 12:02 CK-MB (CK-2) 3.8 ng/mL (0.0-4.0) 11/13/18 12:02 CK-MB (CK-2) Rel Index 1.3 (0-4) 11/13/18 12:02 Troponin T < 0.010 ng/mL (0.00-0.029) 11/13/18 12:02 NT-Pro-B Natriuret Pep 823.6 pg/mL (0-900) 11/12/18 Unknown Total Protein 5.6 g/dL (6.3-8.2) L D 11/14/18 05:20 Albumin 2.6 g/dL (3.9-5) L 11/14/18 05:20 Albumin/Globulin Ratio 0.9 % 11/14/18 05:20 Blood Type O POSITIVE 11/14/18 01:08 Antibody Screen Negative 11/14/18 01:08 Lactic acid level is 15, pH is less than 7 Nutrition/Malnutrition Assess - Dietary Evaluation Nutrition/Malnutrition Findings: Nutrition Notes Start: 11/14/18 09:54 Freq: Status: Active Protocol: Document 11/14/18 09:54 LP (Rec: 11/14/18 10:03 LP [id number]) Nutrition Notes Need for Assessment generated from: MD Order Initial or Follow up Assessment Current Diagnoses COPD Hypertension Other Pertinent Diagnosis hep C Current Diet NPO Labs/Tests K 5.6 Cr 2.5 BG 11 Medications Reviewed Height 5 ft 8 in Weight 90.718 kg [place] Body Weight (lbs) 154.0 BMI 30.4 Subjective/Other Information Consult for evaluate nutritional intake. Pt on vent with NGT to LIS. Burn Absent Trauma Absent #1 Nutrition Diagnoses Inadequate oral intake Etiology vent As Evidenced by Signs and Symptoms Pt NPO and unable to consume PO Is patient on ventilator? Yes Is Patient Ambulatory and/or Out of Bed No [facility] 068 Calculation Used for Recommendations [facility] Additional Notes Protein needs are 140g (2g/kg IBW) Fluid needs are 1ml/kcal Nutrition Intervention Change Diet Order: TF once consulted Goal #1 TF once consulted Anticipated Discharge Needs: Unable to determine at this time Follow-Up By: 11/16/18 Additional Comments Follow for TF consult or extubation
[2018-11-14] MEDS: SODIUM CHLORIDE FLUSH SYRINGE 10 ML IV SCH ×2 (19:18→22:00)
[2018-11-14 20:27] LABS: Mean Corpuscular HGB Conc 27 % (32-34); Mean Corpuscular Volume 89 fl (84-94); Red Blood Count 3.02 M/mm3 (3.65-5.03)
[2018-11-14 20:28] LABS: Hematocrit 26.8 % (35.5-45.6); Hemoglobin 7.3 gm/dl (11.8-15.2); Platelet Count 51 K/mm3 (140-440); Red Cell Distribution Width 24.1 % (13.2-15.2)
[2018-11-14 20:43] LABS: Calcium 5.3 mg/dL (8.4-10.2)
[2018-11-14] MEDS: ADRENALIN 8 MG in NACL 0.9% 250ML 242 ML IV SCH (20:45)
[2018-11-14] MEDS ORDERED: NACL 0.9% 500 ML 500 ML IV ONE (21:14)
[2018-11-15] MEDS: SODIUM CHLORIDE FLUSH SYRINGE 10 ML IV SCH ×2 (00:52→09:51)
[2018-11-15] MEDS: LEVOPHED 8 MG in NACL 0.9% 250ML 242 ML IV SCH ×6 (00:56→20:00)
[2018-11-15 03:43] LABS: Mean Corpuscular HGB Conc 27 % (32-34); Mean Corpuscular Volume 91 fl (84-94)
[2018-11-15 03:47] LABS: Hematocrit 29.3 % (35.5-45.6); Hemoglobin 7.8 gm/dl (11.8-15.2); Platelet Count 44 K/mm3 (140-440); Red Cell Distribution Width 23.7 % (13.2-15.2)
[2018-11-15] MEDS: fentaNYL DRIP Premix 2,000 MCG/100 ML BAG IV SCH (03:50)
[2018-11-15] MEDS: D10W 1,000 ML with SODIUM BICARBONATE 150 MEQ IV SCH (03:55)
[2018-11-15] MEDS: Vasostrict 20 UNIT in NACL 0.9% 100 ML IV SCH ×2 (03:56→17:17)
[2018-11-15] MEDS: NEO-SYNEPHRINE 100 MG in NACL 0.9% 90 ML IV SCH ×6 (03:57→21:00)
[2018-11-15 05:41] LABS: Basophils % (Manual) 0 % (0.0-1.8); Total Cells Counted 100
[2018-11-15] MEDS: ZOSYN/NS 2.25 GM/50ML 2.25 GM/50 ML BAG IV SCH ×4 (05:41→18:05)
[2018-11-15 05:42] LABS: Band Neutrophils # (Manual) 1.6 K/mm3; Burr Cells Few; Eosinophils % (Manual) 0 % (0.0-4.3); Hypochromasia 2+; Ovalocytes Few; Poikilocytosis 1+; Schistocytes Rare; Tear Drop Cells Few
[2018-11-15 05:43] LABS: Platelet Estimate Consistent w Auto
[2018-11-15] MEDS: INTROPIN DRIP 800 MG/D5W 250 ML 800 MG/250 ML BAG IV SCH ×3 (05:45→18:50)
--- NOTE | 2018-11-15 08:15 | XRay Report ---
AP CHEST: HISTORY: Followup respiratory failure Compared to 11/14/18. The endotracheal tube and nasogastric tube remain in good position. There is poor respiratory effort. Mild cardiomegaly and pulmonary venous congestion are suspected. The lungs are generally clear. No large infiltrate, pleural effusion or pneumothorax is identified. IMPRESSION: Mild cardiomegaly and pulmonary venous congestion.
[2018-11-15] MEDS: DOBUTREX DRIP 500MG/D5W 250ML 500 MG/250 ML BAG IV SCH ×2 (08:47→18:56)
--- NOTE | 2018-11-15 09:01 | Progress Note ---
Assessment and Plan - Patient Problems (1) Duodenal ulcer perforation Current Visit: Yes Status: Acute Plan to address problem: Pt in critical condition. s/p ex lap, duodenal repair with Javid patch, pyloric exclusion, liver bx, and AbThera placement - 11/13/18 - POD#2. Currently in [facility]. Discussed case with Dr. Andre. Suggested that periodically, part of the vac drainage volume could be replaced with Albumin as we would do in a paracentesis situation. Patient has a very poor prognosis. At this point, he will not tolerate another procedure. Strong consideration should be given to comfort care. With all of his acute and chronic medical problems, it is unlikely that he will be able to recover from this. Please call with questions. time=10min Subjective Date of service: 11/15/18 Patient Reports: Positive: other (increased pressor requirement overnight. ) Objective Vital Signs - 12hr 11/14/18 11/14/18 11/14/18 21:10 21:20 21:30 Temperature Pulse Rate 96 H 96 H 96 H Pulse Rate [ Right Radial] Respiratory 26 H 27 H 27 H Rate Blood Pressure 140/50 144/51 146/53 O2 Sat by Pulse 100 100 100 Oximetry 11/14/18 11/14/18 11/14/18 21:40 21:50 22:00 Temperature Pulse Rate 96 H 95 H 95 H Pulse Rate [ 99 H Right Radial] Respiratory 26 H 25 H 25 H Rate Blood Pressure 146/53 140/50 148/54 O2 Sat by Pulse 100 100 100 Oximetry 11/14/18 11/14/18 11/14/18 22:10 22:20 22:24 Temperature 97.4 F L Pulse Rate 95 H 94 H Pulse Rate [ Right Radial] Respiratory 26 H 25 H Rate Blood Pressure 148/54 132/53 O2 Sat by Pulse 100 100 Oximetry 11/14/18 11/14/18 11/14/18 22:30 22:39 22:40 Temperature 97.3 F L Pulse Rate 94 H 93 H 93 H Pulse Rate [ Right Radial] Respiratory 25 H 25 H 25 H Rate Blood Pressure 141/50 92/43 141/50 O2 Sat by Pulse 100 100 100 Oximetry 11/14/18 11/14/18 11/14/18 22:50 23:00 23:04 Temperature 97.2 F L 97.6 F Pulse Rate 93 H 93 H Pulse Rate [ Right Radial] Respiratory 25 H 24 Rate Blood Pressure 132/53 141/51 O2 Sat by Pulse 100 100 Oximetry 11/14/18 11/14/18 11/14/18 23:10 23:20 23:30 Temperature Pulse Rate 92 H 91 H 92 H Pulse Rate [ Right Radial] Respiratory 25 H 24 24 Rate Blood Pressure 141/51 142/50 137/50 O2 Sat by Pulse 100 100 100 Oximetry 11/14/18 11/14/18 11/14/18 23:40 23:42 23:43 Temperature 97.5 F L Pulse Rate 92 H 91 H Pulse Rate [ Right Radial] Respiratory 24 24 Rate Blood Pressure 137/50 137/50 O2 Sat by Pulse 100 100 Oximetry 11/14/18 11/15/18 11/15/18 23:50 00:00 00:10 Temperature Pulse Rate 91 H 91 H 91 H Pulse Rate [ 99 H Right Radial] Respiratory 23 25 H 25 H Rate Blood Pressure 143/57 145/55 145/55 O2 Sat by Pulse 100 100 100 Oximetry 11/15/18 11/15/18 11/15/18 00:20 00:24 00:30 Temperature 98.3 F Pulse Rate 91 H 90 Pulse Rate [ Right Radial] Respiratory 23 24 Rate Blood Pressure 135/50 137/56 O2 Sat by Pulse 100 100 Oximetry 11/15/18 11/15/18 11/15/18 00:34 00:40 00:50 Temperature 98.4 F Pulse Rate 90 90 Pulse Rate [ Right Radial] Respiratory 23 23 Rate Blood Pressure 137/56 134/54 O2 Sat by Pulse 100 100 Oximetry 11/15/18 11/15/18 11/15/18 01:00 01:10 01:20 Temperature Pulse Rate 89 89 89 Pulse Rate [ Right Radial] Respiratory 23 24 22 Rate Blood Pressure 140/47 140/47 132/51 O2 Sat by Pulse 100 100 100 Oximetry 11/15/18 11/15/18 11/15/18 01:22 01:30 01:40 Temperature 98.2 F Pulse Rate 89 89 Pulse Rate [ Right Radial] Respiratory 21 21 Rate Blood Pressure 134/50 134/50 O2 Sat by Pulse 100 100 Oximetry 11/15/18 11/15/18 11/15/18 01:50 02:00 02:05 Temperature 98.0 F Pulse Rate 88 89 92 H Pulse Rate [ Right Radial] Respiratory 22 21 25 H Rate Blood Pressure 137/49 136/47 92/42 O2 Sat by Pulse 100 100 99 Oximetry 11/15/18 11/15/18 11/15/18 02:10 02:20 02:30 Temperature Pulse Rate 88 88 87 Pulse Rate [ Right Radial] Respiratory 21 21 21 Rate Blood Pressure 136/47 136/53 138/48 O2 Sat by Pulse 100 100 Oximetry 11/15/18 11/15/18 11/15/18 02:35 02:40 02:50 Temperature 98.3 F Pulse Rate 99 H 88 87 Pulse Rate [ Right Radial] Respiratory 24 21 20 Rate Blood Pressure 90/41 138/48 134/49 O2 Sat by Pulse 99 Oximetry 11/15/18 11/15/18 11/15/18 03:00 03:10 03:18 Temperature 98.2 F 97.5 F L Pulse Rate 87 86 Pulse Rate [ Right Radial] Respiratory 20 20 Rate Blood Pressure 128/43 128/43 O2 Sat by Pulse 89 Oximetry 11/15/18 11/15/18 11/15/18 03:20 03:30 03:40 Temperature Pulse Rate 87 86 85 Pulse Rate [ Right Radial] Respiratory 20 20 19 Rate Blood Pressure 130/50 115/52 115/52 O2 Sat by Pulse 90 Oximetry 11/15/18 11/15/18 11/15/18 03:48 03:50 04:00 Temperature Pulse Rate 86 86 Pulse Rate [ 99 H Right Radial] Respiratory 25 H 20 20 Rate Blood Pressure 132/51 131/52 O2 Sat by Pulse Oximetry 11/15/18 11/15/18 11/15/18 04:01 04:10 04:20 Temperature Pulse Rate 86 85 85 Pulse Rate [ Right Radial] Respiratory 19 20 Rate Blood Pressure 131/52 131/52 131/52 O2 Sat by Pulse 89 Oximetry 11/15/18 11/15/18 11/15/18 04:30 04:40 04:50 Temperature Pulse Rate 85 86 86 Pulse Rate [ Right Radial] Respiratory 21 23 25 H Rate Blood Pressure 134/47 134/47 133/46 O2 Sat by Pulse Oximetry 11/15/18 11/15/18 11/15/18 05:00 05:10 05:20 Temperature Pulse Rate 86 87 85 Pulse Rate [ Right Radial] Respiratory 21 21 19 Rate Blood Pressure 129/47 129/47 120/45 O2 Sat by Pulse Oximetry 11/15/18 11/15/18 11/15/18 05:30 05:40 05:50 Temperature Pulse Rate 85 85 85 Pulse Rate [ Right Radial] Respiratory 19 19 20 Rate Blood Pressure 128/50 128/50 126/53 O2 Sat by Pulse Oximetry 11/15/18 11/15/18 11/15/18 05:52 06:00 06:10 Temperature Pulse Rate 85 85 Pulse Rate [ 84 Right Radial] Respiratory 22 19 19 Rate Blood Pressure 136/55 136/55 O2 Sat by Pulse Oximetry 11/15/18 11/15/18 11/15/18 06:20 06:30 06:40 Temperature Pulse Rate 85 85 85 Pulse Rate [ Right Radial] Respiratory 19 18 18 Rate Blood Pressure 135/45 133/50 133/50 O2 Sat by Pulse Oximetry 11/15/18 11/15/18 11/15/18 06:50 07:00 07:10 Temperature Pulse Rate 85 85 85 Pulse Rate [ Right Radial] Respiratory 19 19 18 Rate Blood Pressure 126/51 127/46 127/46 O2 Sat by Pulse Oximetry 11/15/18 11/15/18 11/15/18 07:20 07:30 07:40 Temperature Pulse Rate 85 85 85 Pulse Rate [ Right Radial] Respiratory 17 17 20 Rate Blood Pressure 119/46 127/49 127/49 O2 Sat by Pulse Oximetry 11/15/18 11/15/18 11/15/18 07:50 08:00 08:10 Temperature Pulse Rate 84 85 84 Pulse Rate [ Right Radial] Respiratory 22 18 18 Rate Blood Pressure 119/49 126/57 127/49 O2 Sat by Pulse 97 97 Oximetry 11/15/18 11/15/18 11/15/18 08:20 08:30 08:38 Temperature Pulse Rate 85 85 84 Pulse Rate [ Right Radial] Respiratory 17 21 Rate Blood Pressure 132/48 128/50 128/50 O2 Sat by Pulse 98 98 97 Oximetry 11/15/18 11/15/18 11/15/18 08:40 08:50 08:51 Temperature Pulse Rate 86 83 84 Pulse Rate [ Right Radial] Respiratory 18 21 Rate Blood Pressure 128/50 119/49 O2 Sat by Pulse 99 97 Oximetry - General physical appearance no distress, no pain, other (generalized swelling and mottled appearance. ) - Abdomen soft, distended, other (wound vac in place. mottled skin. serous drainage in wound vac. ) - Integumentary other (generalized mottling of skin) - Labs 11/15/18 03:36 11/15/18 03:36 Diabetes panel 11/14/18 11/15/18 Range/Units 20:12 03:36 Sodium 147 H 143 (137-145) mmol/L Potassium 4.5 4.4 (3.6-5.0) mmol/L Chloride 105.0 102.0 (98-107) mmol/L Carbon Dioxide 7 L* 8 L* (22-30) mmol/L BUN 15 15 (9-20) mg/dL Creatinine 3.2 H 3.4 H (0.8-1.5) mg/dL Glucose 172 H 359 H (75-100) mg/dL Calcium 5.3 L* D 5.0 L* (8.4-10.2) mg/dL Calcium panel 11/14/18 11/15/18 Range/Units 20:12 03:36 Calcium 5.3 L* D 5.0 L* (8.4-10.2) mg/dL Pituitary panel 11/14/18 11/15/18 Range/Units 20:12 03:36 Sodium 147 H 143 (137-145) mmol/L Potassium 4.5 4.4 (3.6-5.0) mmol/L Chloride 105.0 102.0 (98-107) mmol/L Carbon Dioxide 7 L* 8 L* (22-30) mmol/L BUN 15 15 (9-20) mg/dL Creatinine 3.2 H 3.4 H (0.8-1.5) mg/dL Glucose 172 H 359 H (75-100) mg/dL Calcium 5.3 L* D 5.0 L* (8.4-10.2) mg/dL Adrenal panel 11/14/18 11/15/18 Range/Units 20:12 03:36 Sodium 147 H 143 (137-145) mmol/L Potassium 4.5 4.4 (3.6-5.0) mmol/L Chloride 105.0 102.0 (98-107) mmol/L Carbon Dioxide 7 L* 8 L* (22-30) mmol/L BUN 15 15 (9-20) mg/dL Creatinine 3.2 H 3.4 H (0.8-1.5) mg/dL Glucose 172 H 359 H (75-100) mg/dL Calcium 5.3 L* D 5.0 L* (8.4-10.2) mg/dL
[2018-11-15] MEDS: DIFLUCAN 200 MG/100 ML BAG IV SCH (09:51)
[2018-11-15] MEDS ORDERED: PROTONIX IV SCH (10:00)
[2018-11-15] MEDS: STERILE WATER IV SCH ×2 (10:48→17:32)
[2018-11-15] MEDS: SODIUM BICARBONATE IV SCH ×2 (10:48→17:32)
[2018-11-15] MEDS ORDERED: NACL 0.9% 500 ML 500 ML IV SCH (11:00)
--- NOTE | 2018-11-15 11:24 | Progress Note ---
Assessment and Plan Septic shock. Patient multiple pressors without signs of improvement. No urine output now and progressive lactic acidosis consistent with circulation failure. No gross bleeding, EKG changes, hemoglobin appears to be stable Severe sepsis with shock. Secondary to perforated viscus, duodenal Perforated duodenal ulcer Acute respiratory failure. Secondary to the above. Oximetry 100% at the bedside Recommendations I ordered 500 mL crystalloid bolus Increase dobutamine to 10 mcs after bolus, monitor response 2 amps bicarbonate plus restart Infusion, in view of severe acidosis with pH less than 7.1 Keep MAP > 60-65 Monitor UO, keep > 30 cc/ hr Serial lactate levels q 6-8 hr x 4 PRBC if Hgb < 7 Fentanyl he has been discontinued in view of hypotension but the patient has no additional neurological response monitor for any bleeding Continue antibiotics but so far no additional improvement noted Continue ventilator setting at present level I called the patient daughter Mellisa, and we had a long discussion about her father status, update of medical state and expected outcome. I explained that his mortality is elevated and he is not expected to survive it is no rapid improvement of his shock and acidosis. Her family does not wish to subject him to futile and kimberly and we discussed about his direct including DNR/DNI in detail. Family agreed and requested him to call status to be changed to DNR/DNI and order was entered on record, after confirmation also his ICU nurse. Prognosis very poor at this point Critical care time was 45 minutes of [id number] evaluation and coordination of care Subjective Date of service: 11/15/18 Principal diagnosis: septic shock, perforated viscus, MSOF, acute respiratory failure Interval history: Intubated and unresponsive. Off sedation Objective Vital Signs - 12hr 11/14/18 11/14/18 11/14/18 23:20 23:30 23:40 Temperature Pulse Rate 91 H 92 H 92 H Pulse Rate [ Right Radial] Respiratory 24 24 24 Rate Blood Pressure 142/50 137/50 137/50 O2 Sat by Pulse 100 100 100 Oximetry 11/14/18 11/14/18 11/14/18 23:42 23:43 23:50 Temperature 97.5 F L Pulse Rate 91 H 91 H Pulse Rate [ Right Radial] Respiratory 24 23 Rate Blood Pressure 137/50 143/57 O2 Sat by Pulse 100 100 Oximetry 11/15/18 11/15/18 11/15/18 00:00 00:10 00:20 Temperature Pulse Rate 91 H 91 H 91 H Pulse Rate [ 99 H Right Radial] Respiratory 25 H 25 H 23 Rate Blood Pressure 145/55 145/55 135/50 O2 Sat by Pulse 100 100 100 Oximetry 11/15/18 11/15/18 11/15/18 00:24 00:30 00:34 Temperature 98.3 F 98.4 F Pulse Rate 90 Pulse Rate [ Right Radial] Respiratory 24 Rate Blood Pressure 137/56 O2 Sat by Pulse 100 Oximetry 11/15/18 11/15/18 11/15/18 00:40 00:50 01:00 Temperature Pulse Rate 90 90 89 Pulse Rate [ Right Radial] Respiratory 23 23 23 Rate Blood Pressure 137/56 134/54 140/47 O2 Sat by Pulse 100 100 100 Oximetry 11/15/18 11/15/18 11/15/18 01:10 01:20 01:22 Temperature 98.2 F Pulse Rate 89 89 Pulse Rate [ Right Radial] Respiratory 24 22 Rate Blood Pressure 140/47 132/51 O2 Sat by Pulse 100 100 Oximetry 11/15/18 11/15/18 11/15/18 01:30 01:40 01:50 Temperature Pulse Rate 89 89 88 Pulse Rate [ Right Radial] Respiratory 21 21 22 Rate Blood Pressure 134/50 134/50 137/49 O2 Sat by Pulse 100 100 100 Oximetry 11/15/18 11/15/18 11/15/18 02:00 02:05 02:10 Temperature 98.0 F Pulse Rate 89 92 H 88 Pulse Rate [ Right Radial] Respiratory 21 25 H 21 Rate Blood Pressure 136/47 92/42 136/47 O2 Sat by Pulse 100 99 100 Oximetry 11/15/18 11/15/18 11/15/18 02:20 02:30 02:35 Temperature 98.3 F Pulse Rate 88 87 99 H Pulse Rate [ Right Radial] Respiratory 21 21 24 Rate Blood Pressure 136/53 138/48 90/41 O2 Sat by Pulse 100 99 Oximetry 11/15/18 11/15/18 11/15/18 02:40 02:50 03:00 Temperature Pulse Rate 88 87 87 Pulse Rate [ Right Radial] Respiratory 21 20 20 Rate Blood Pressure 138/48 134/49 128/43 O2 Sat by Pulse Oximetry 11/15/18 11/15/18 11/15/18 03:10 03:18 03:20 Temperature 98.2 F 97.5 F L Pulse Rate 86 87 Pulse Rate [ Right Radial] Respiratory 20 20 Rate Blood Pressure 128/43 130/50 O2 Sat by Pulse 89 Oximetry 11/15/18 11/15/18 11/15/18 03:30 03:40 03:48 Temperature Pulse Rate 86 85 Pulse Rate [ 99 H Right Radial] Respiratory 20 19 25 H Rate Blood Pressure 115/52 115/52 O2 Sat by Pulse 90 Oximetry 11/15/18 11/15/18 11/15/18 03:50 04:00 04:01 Temperature Pulse Rate 86 86 86 Pulse Rate [ Right Radial] Respiratory 20 20 Rate Blood Pressure 132/51 131/52 131/52 O2 Sat by Pulse 89 Oximetry 11/15/18 11/15/18 11/15/18 04:10 04:20 04:30 Temperature Pulse Rate 85 85 85 Pulse Rate [ Right Radial] Respiratory 19 20 21 Rate Blood Pressure 131/52 131/52 134/47 O2 Sat by Pulse Oximetry 11/15/18 11/15/18 11/15/18 04:40 04:50 05:00 Temperature Pulse Rate 86 86 86 Pulse Rate [ Right Radial] Respiratory 23 25 H 21 Rate Blood Pressure 134/47 133/46 129/47 O2 Sat by Pulse Oximetry 11/15/18 11/15/18 11/15/18 05:10 05:20 05:30 Temperature Pulse Rate 87 85 85 Pulse Rate [ Right Radial] Respiratory 21 19 19 Rate Blood Pressure 129/47 120/45 128/50 O2 Sat by Pulse Oximetry 11/15/18 11/15/18 11/15/18 05:40 05:50 05:52 Temperature Pulse Rate 85 85 Pulse Rate [ 84 Right Radial] Respiratory 19 20 22 Rate Blood Pressure 128/50 126/53 O2 Sat by Pulse Oximetry 11/15/18 11/15/18 11/15/18 06:00 06:10 06:20 Temperature Pulse Rate 85 85 85 Pulse Rate [ Right Radial] Respiratory 19 19 19 Rate Blood Pressure 136/55 136/55 135/45 O2 Sat by Pulse Oximetry 11/15/18 11/15/18 11/15/18 06:30 06:40 06:50 Temperature Pulse Rate 85 85 85 Pulse Rate [ Right Radial] Respiratory 18 18 19 Rate Blood Pressure 133/50 133/50 126/51 O2 Sat by Pulse Oximetry 11/15/18 11/15/18 11/15/18 07:00 07:10 07:20 Temperature Pulse Rate 85 85 85 Pulse Rate [ Right Radial] Respiratory 19 18 17 Rate Blood Pressure 127/46 127/46 119/46 O2 Sat by Pulse Oximetry 11/15/18 11/15/18 11/15/18 07:30 07:40 07:50 Temperature Pulse Rate 85 85 84 Pulse Rate [ Right Radial] Respiratory 17 20 22 Rate Blood Pressure 127/49 127/49 119/49 O2 Sat by Pulse Oximetry 11/15/18 11/15/18 11/15/18 08:00 08:10 08:20 Temperature Pulse Rate 85 84 85 Pulse Rate [ Right Radial] Respiratory 18 18 17 Rate Blood Pressure 126/57 127/49 132/48 O2 Sat by Pulse 97 97 98 Oximetry 11/15/18 11/15/18 11/15/18 08:30 08:38 08:40 Temperature Pulse Rate 85 84 86 Pulse Rate [ Right Radial] Respiratory 21 18 Rate Blood Pressure 128/50 128/50 128/50 O2 Sat by Pulse 98 97 99 Oximetry 11/15/18 11/15/18 11/15/18 08:50 08:51 09:00 Temperature Pulse Rate 83 84 83 Pulse Rate [ Right Radial] Respiratory 21 17 Rate Blood Pressure 119/49 122/49 O2 Sat by Pulse 97 98 Oximetry Constitutional: comatose (secondary to metabolic state and sedation) Eyes: non-icteric ENT: other (orally intubated and critically ill on vent) Neck: supple, no JVD, other (large neck) Ascultation: Bilateral: clear (anteriorly) Percussion: Bilateral: not dull Tactile fremitus: Bilateral: normal Cardiovascular: regular rate and rhythm Gastrointestinal: other (post surgical changes with wound vac in place. Obese. Decreased bowel sounds) Extremities: cool, other (peripheral mottling noted) Neurologic: unable to assess CBC and BMP: 11/15/18 03:36 11/15/18 03:36 ABG, PT/INR, D-dimer: ABG POC ABG pH 6.871 (7.35-7.45) L 11/15/18 04:12 POC ABG pCO2 33.4 (35-45) L 11/15/18 04:12 POC ABG pO2 87 (80-105) 11/15/18 04:12 POC ABG HCO3 6.1 11/15/18 04:12 POC ABG Total CO2 7 11/15/18 04:12 POC ABG O2 Sat 86 11/15/18 04:12 PT/INR, D-dimer PT 22.2 Sec. (12.2-14.9) H 11/13/18 00:59 INR 1.90 (0.87-1.13) H 11/13/18 00:59 Abnormal lab findings: Abnormal Labs 11/12/18 11/12/18 11/12/18 21:50 21:50 Unknown WBC 4.4 L RBC Hgb 11.3 L Hct MCV 77 L MCH 24 L MCHC 31 L RDW 23.5 H Plt Count 73 L Lymph # 0.8 L Seg Neutrophils % 75.7 H Seg Neuts % (Manual) Lymphocytes % (Manual) Monocytes % (Manual) Nucleated RBC % Seg Neutrophils # Man Lymphocytes # (Manual) PT 20.5 H INR 1.71 H POC ABG pH POC ABG pCO2 POC ABG pO2 Sodium Potassium 3.1 L Chloride Carbon Dioxide Creatinine 0.6 L Glucose 124 H POC Glucose Lactic Acid Calcium Total Bilirubin Direct Bilirubin AST ALT Alkaline Phosphatase Total Creatine Kinase Total Protein Albumin Crossmatch 11/12/18 11/13/18 11/13/18 Unknown 00:59 00:59 WBC RBC Hgb 11.2 L Hct MCV MCH MCHC RDW Plt Count 75 L Lymph # Seg Neutrophils % Seg Neuts % (Manual) Lymphocytes % (Manual) Monocytes % (Manual) Nucleated RBC % Seg Neutrophils # Man Lymphocytes # (Manual) PT 22.2 H INR 1.90 H POC ABG pH POC ABG pCO2 POC ABG pO2 Sodium Potassium Chloride Carbon Dioxide Creatinine Glucose POC Glucose Lactic Acid Calcium Total Bilirubin 2.50 H Direct Bilirubin 0.9 H AST 77 H ALT Alkaline Phosphatase Total Creatine Kinase Total Protein Albumin 3.2 L Crossmatch 11/13/18 11/13/18 11/13/18 06:56 06:56 06:56 WBC 3.6 L RBC Hgb 10.7 L Hct 34.8 L MCV 77 L MCH 24 L MCHC 31 L RDW 22.7 H Plt Count 75 L Lymph # Seg Neutrophils % Seg Neuts % (Manual) Lymphocytes % (Manual) 3.0 L Monocytes % (Manual) 10.0 H Nucleated RBC % Seg Neutrophils # Man Lymphocytes # (Manual) 0.1 L PT INR POC ABG pH POC ABG pCO2 POC ABG pO2 Sodium 136 L Potassium 3.3 L Chloride Carbon Dioxide 13 L D Creatinine 1.6 H D Glucose POC Glucose Lactic Acid Calcium 7.8 L Total Bilirubin Direct Bilirubin AST ALT Alkaline Phosphatase Total Creatine Kinase 185 H Total Protein Albumin Crossmatch 11/13/18 11/13/18 11/13/18 12:02 12:02 14:45 WBC RBC Hgb Hct MCV MCH MCHC RDW Plt Count Lymph # Seg Neutrophils % Seg Neuts % (Manual) Lymphocytes % (Manual) Monocytes % (Manual) Nucleated RBC % Seg Neutrophils # Man Lymphocytes # (Manual) PT INR POC ABG pH POC ABG pCO2 POC ABG pO2 Sodium Potassium Chloride Carbon Dioxide Creatinine Glucose POC Glucose Lactic Acid 12.90 H* 12.60 H* Calcium Total Bilirubin Direct Bilirubin AST ALT Alkaline Phosphatase Total Creatine Kinase 290 H Total Protein Albumin Crossmatch 11/13/18 11/14/18 11/14/18 18:00 01:08 01:08 WBC RBC Hgb Hct MCV MCH MCHC RDW Plt Count Lymph # Seg Neutrophils % Seg Neuts % (Manual) Lymphocytes % (Manual) Monocytes % (Manual) Nucleated RBC % Seg Neutrophils # Man Lymphocytes # (Manual) PT INR POC ABG pH POC ABG pCO2 POC ABG pO2 Sodium Potassium Chloride Carbon Dioxide Creatinine Glucose POC Glucose Lactic Acid 15.30 H* 11.30 H* Calcium Total Bilirubin Direct Bilirubin AST ALT Alkaline Phosphatase Total Creatine Kinase Total Protein Albumin Crossmatch See Detail 11/14/18 11/14/18 11/14/18 01:25 03:00 04:47 WBC RBC Hgb Hct MCV MCH MCHC RDW Plt Count Lymph # Seg Neutrophils % Seg Neuts % (Manual) Lymphocytes % (Manual) Monocytes % (Manual) Nucleated RBC % Seg Neutrophils # Man Lymphocytes # (Manual) PT INR POC ABG pH 6.943 L POC ABG pCO2 POC ABG pO2 Sodium Potassium Chloride Carbon Dioxide Creatinine Glucose POC Glucose Lactic Acid 11.10 H* 11.10 H* Calcium Total Bilirubin Direct Bilirubin AST ALT Alkaline Phosphatase Total Creatine Kinase Total Protein Albumin Crossmatch 11/14/18 11/14/18 11/14/18 05:15 05:15 05:20 WBC 14.3 H RBC Hgb 9.5 L Hct 33.5 L MCV MCH 24 L MCHC 29 L RDW 23.8 H Plt Count 76 L Lymph # Seg Neutrophils % Seg Neuts % (Manual) 38.0 L Lymphocytes % (Manual) 3.0 L Monocytes % (Manual) Nucleated RBC % Seg Neutrophils # Man Lymphocytes # (Manual) 0.4 L PT INR POC ABG pH POC ABG pCO2 POC ABG pO2 Sodium Potassium 5.6 H D Chloride 107.2 H Carbon Dioxide 10 L Creatinine 2.5 H D Glucose 11 L* POC Glucose Lactic Acid 12.10 H* Calcium 7.1 L Total Bilirubin 5.20 H Direct Bilirubin AST 2651 H ALT 437 H Alkaline Phosphatase 34 L Total Creatine Kinase Total Protein 5.6 L D Albumin 2.6 L Crossmatch 11/14/18 11/14/18 11/14/18 06:06 06:57 08:30 WBC RBC Hgb Hct MCV MCH MCHC RDW Plt Count Lymph # Seg Neutrophils % Seg Neuts % (Manual) Lymphocytes % (Manual) Monocytes % (Manual) Nucleated RBC % Seg Neutrophils # Man Lymphocytes # (Manual) PT INR POC ABG pH POC ABG pCO2 POC ABG pO2 Sodium Potassium Chloride Carbon Dioxide Creatinine Glucose POC Glucose 60 L < 40 L Lactic Acid 12.30 H* Calcium Total Bilirubin Direct Bilirubin AST ALT Alkaline Phosphatase Total Creatine Kinase Total Protein Albumin Crossmatch 11/14/18 11/14/18 11/14/18 10:52 12:27 14:20 WBC RBC Hgb Hct MCV MCH MCHC RDW Plt Count Lymph # Seg Neutrophils % Seg Neuts % (Manual) Lymphocytes % (Manual) Monocytes % (Manual) Nucleated RBC % Seg Neutrophils # Man Lymphocytes # (Manual) PT INR POC ABG pH 6.897 L POC ABG pCO2 24.7 L POC ABG pO2 79 L Sodium Potassium Chloride Carbon Dioxide Creatinine Glucose POC Glucose 68 L Lactic Acid 15.00 H* Calcium Total Bilirubin Direct Bilirubin AST ALT Alkaline Phosphatase Total Creatine Kinase Total Protein Albumin Crossmatch 11/14/18 11/14/18 11/14/18 15:04 19:41 20:12 WBC 11.7 H RBC 3.02 L Hgb 7.3 L Hct 26.8 L D MCV MCH 24 L MCHC 27 L RDW 24.1 H Plt Count 51 L Lymph # Seg Neutrophils % Seg Neuts % (Manual) Lymphocytes % (Manual) Monocytes % (Manual) Nucleated RBC % Seg Neutrophils # Man Lymphocytes # (Manual) PT INR POC ABG pH POC ABG pCO2 POC ABG pO2 Sodium Potassium Chloride Carbon Dioxide Creatinine Glucose POC Glucose 67 L 137 H Lactic Acid Calcium Total Bilirubin Direct Bilirubin AST ALT Alkaline Phosphatase Total Creatine Kinase Total Protein Albumin Crossmatch 11/14/18 11/14/18 11/14/18 20:12 21:20 21:53 WBC RBC Hgb Hct MCV MCH MCHC RDW Plt Count Lymph # Seg Neutrophils % Seg Neuts % (Manual) Lymphocytes % (Manual) Monocytes % (Manual) Nucleated RBC % Seg Neutrophils # Man Lymphocytes # (Manual) PT INR POC ABG pH POC ABG pCO2 POC ABG pO2 Sodium 147 H Potassium Chloride Carbon Dioxide 7 L* Creatinine 3.2 H Glucose 172 H POC Glucose 188 H 209 H Lactic Acid Calcium 5.3 L* D Total Bilirubin Direct Bilirubin AST ALT Alkaline Phosphatase Total Creatine Kinase Total Protein Albumin Crossmatch 11/14/18 11/15/18 11/15/18 23:27 00:06 01:07 WBC RBC Hgb Hct MCV MCH MCHC RDW Plt Count Lymph # Seg Neutrophils % Seg Neuts % (Manual) Lymphocytes % (Manual) Monocytes % (Manual) Nucleated RBC % Seg Neutrophils # Man Lymphocytes # (Manual) PT INR POC ABG pH POC ABG pCO2 POC ABG pO2 Sodium Potassium Chloride Carbon Dioxide Creatinine Glucose POC Glucose 259 H 271 H 287 H Lactic Acid Calcium Total Bilirubin Direct Bilirubin AST ALT Alkaline Phosphatase Total Creatine Kinase Total Protein Albumin Crossmatch 11/15/18 11/15/18 11/15/18 02:08 03:00 03:36 WBC 12.2 H RBC 3.20 L Hgb 7.8 L Hct 29.3 L MCV MCH 24 L MCHC 27 L RDW 23.7 H Plt Count 44 L Lymph # Seg Neutrophils % Seg Neuts % (Manual) 73.0 H Lymphocytes % (Manual) 6.0 L Monocytes % (Manual) Nucleated RBC % 1.0 H Seg Neutrophils # Man 8.9 H Lymphocytes # (Manual) 0.7 L PT INR POC ABG pH POC ABG pCO2 POC ABG pO2 Sodium Potassium Chloride Carbon Dioxide Creatinine Glucose POC Glucose 289 H 347 H Lactic Acid Calcium Total Bilirubin Direct Bilirubin AST ALT Alkaline Phosphatase Total Creatine Kinase Total Protein Albumin Crossmatch 11/15/18 11/15/18 11/15/18 03:36 04:12 04:16 WBC RBC Hgb Hct MCV MCH MCHC RDW Plt Count Lymph # Seg Neutrophils % Seg Neuts % (Manual) Lymphocytes % (Manual) Monocytes % (Manual) Nucleated RBC % Seg Neutrophils # Man Lymphocytes # (Manual) PT INR POC ABG pH 6.871 L POC ABG pCO2 33.4 L POC ABG pO2 Sodium Potassium Chloride Carbon Dioxide 8 L* Creatinine 3.4 H Glucose 359 H POC Glucose 337 H Lactic Acid Calcium 5.0 L* Total Bilirubin Direct Bilirubin AST ALT Alkaline Phosphatase Total Creatine Kinase Total Protein Albumin Crossmatch 11/15/18 11/15/18 11/15/18 05:17 06:09 06:52 WBC RBC Hgb Hct MCV MCH MCHC RDW Plt Count Lymph # Seg Neutrophils % Seg Neuts % (Manual) Lymphocytes % (Manual) Monocytes % (Manual) Nucleated RBC % Seg Neutrophils # Man Lymphocytes # (Manual) PT INR POC ABG pH POC ABG pCO2 POC ABG pO2 Sodium Potassium Chloride Carbon Dioxide Creatinine Glucose POC Glucose 350 H 323 H 391 H Lactic Acid Calcium Total Bilirubin Direct Bilirubin AST ALT Alkaline Phosphatase Total Creatine Kinase Total Protein Albumin Crossmatch 11/15/18 11/15/18 09:49 11:08 WBC RBC Hgb Hct MCV MCH MCHC RDW Plt Count Lymph # Seg Neutrophils % Seg Neuts % (Manual) Lymphocytes % (Manual) Monocytes % (Manual) Nucleated RBC % Seg Neutrophils # Man Lymphocytes # (Manual) PT INR POC ABG pH POC ABG pCO2 POC ABG pO2 Sodium Potassium Chloride Carbon Dioxide Creatinine Glucose POC Glucose 361 H 331 H Lactic Acid Calcium Total Bilirubin Direct Bilirubin AST ALT Alkaline Phosphatase Total Creatine Kinase Total Protein Albumin Crossmatch Chest x-ray: report reviewed, image reviewed
--- NOTE | 2018-11-15 12:08 | Progress Note ---
Addendum entered and electronically signed by ABEL LEE MD 11/15/18 18:05: Continue supportive management, cardiac and hemodynamic status are stable. Original Note: Assessment and Plan Acute abdomen secondary to perforated viscus s/p emergent exploratory lap Respiratory failure Cardiomyopathy, EF 25-30% Hypertension COPD DNR status Supportive cardiac care. Subjective Date of service: 11/15/18 Principal diagnosis: septic shock, perforated viscus, MSOF, acute respiratory failure Interval history: Patient remains intubated and on multiple pressors for support. Objective Vital Signs Temp Pulse Pulse Resp BP Pulse Ox 11/15/18 09:00 83 17 122/49 98 11/15/18 08:51 84 11/15/18 08:50 83 21 119/49 97 11/15/18 08:40 86 18 128/50 99 11/15/18 08:38 84 128/50 97 11/15/18 08:30 85 21 128/50 98 11/15/18 08:20 85 17 132/48 98 11/15/18 08:10 84 18 127/49 97 11/15/18 08:00 85 18 126/57 97 11/15/18 07:50 84 22 119/49 11/15/18 07:40 85 20 127/49 11/15/18 07:30 85 17 127/49 11/15/18 07:20 85 17 119/46 11/15/18 07:10 85 18 127/46 11/15/18 07:00 85 19 127/46 11/15/18 06:50 85 19 126/51 11/15/18 06:40 85 18 133/50 11/15/18 06:30 85 18 133/50 11/15/18 06:20 85 19 135/45 11/15/18 06:10 85 19 136/55 11/15/18 06:00 85 19 136/55 11/15/18 05:52 84 22 11/15/18 05:50 85 20 126/53 11/15/18 05:40 85 19 128/50 11/15/18 05:30 85 19 128/50 11/15/18 05:20 85 19 120/45 11/15/18 05:10 87 21 129/47 11/15/18 05:00 86 21 129/47 11/15/18 04:50 86 25 H 133/46 11/15/18 04:40 86 23 134/47 11/15/18 04:30 85 21 134/47 11/15/18 04:20 85 20 131/52 11/15/18 04:10 85 19 131/52 11/15/18 04:01 86 131/52 89 11/15/18 04:00 86 20 131/52 11/15/18 03:50 86 20 132/51 11/15/18 03:48 99 H 25 H 11/15/18 03:40 85 19 115/52 11/15/18 03:30 86 20 115/52 90 11/15/18 03:20 87 20 130/50 11/15/18 03:18 97.5 F L 11/15/18 03:10 98.2 F 86 20 128/43 89 11/15/18 03:00 87 20 128/43 11/15/18 02:50 87 20 134/49 11/15/18 02:40 88 21 138/48 11/15/18 02:35 98.3 F 99 H 24 90/41 99 11/15/18 02:30 87 21 138/48 11/15/18 02:20 88 21 136/53 100 11/15/18 02:10 88 21 136/47 100 11/15/18 02:05 98.0 F 92 H 25 H 92/42 99 11/15/18 02:00 89 21 136/47 100 11/15/18 01:50 88 22 137/49 100 11/15/18 01:40 89 21 134/50 100 11/15/18 01:30 89 21 134/50 100 11/15/18 01:22 98.2 F 11/15/18 01:20 89 22 132/51 100 11/15/18 01:10 89 24 140/47 100 11/15/18 01:00 89 23 140/47 100 11/15/18 00:50 90 23 134/54 100 11/15/18 00:40 90 23 137/56 100 11/15/18 00:34 98.4 F 11/15/18 00:30 90 24 137/56 100 11/15/18 00:24 98.3 F 11/15/18 00:20 91 H 23 135/50 100 11/15/18 00:10 91 H 25 H 145/55 100 11/15/18 00:00 91 H 99 H 25 H 145/55 100 11/14/18 23:50 91 H 23 143/57 100 11/14/18 23:43 97.5 F L 11/14/18 23:42 91 H 24 137/50 100 11/14/18 23:40 92 H 24 137/50 100 11/14/18 23:30 92 H 24 137/50 100 11/14/18 23:20 91 H 24 142/50 100 11/14/18 23:10 92 H 25 H 141/51 100 11/14/18 23:04 97.6 F 11/14/18 23:00 97.2 F L 93 H 24 141/51 100 11/14/18 22:50 93 H 25 H 132/53 100 11/14/18 22:40 93 H 25 H 141/50 11/14/18 22:39 97.3 F L 93 H 25 H 92/43 100 11/14/18 22:30 94 H 25 H 141/50 11/14/18 22:24 97.4 F L 11/14/18 22:20 94 H 25 H 132/53 100 11/14/18 22:10 95 H 26 H 148/54 100 11/14/18 22:00 95 H 99 H 25 H 148/54 100 11/14/18 21:50 95 H 25 H 140/50 100 11/14/18 21:40 96 H 26 H 146/53 100 11/14/18 21:30 96 H 27 H 146/53 100 11/14/18 21:20 96 H 27 H 144/51 11/14/18 21:10 96 H 26 H 140/50 100 11/14/18 21:00 96 H 26 H 140/50 100 11/14/18 20:50 96 H 26 H 137/53 100 11/14/18 20:44 96 H 137/53 100 11/14/18 20:40 99 H 31 H 141/48 100 11/14/18 20:30 98 H 27 H 141/48 11/14/18 20:20 97 H 27 H 138/48 93 11/14/18 20:10 97 H 27 H 144/52 92 11/14/18 20:00 98 H 99 H 25 H 144/52 92 11/14/18 19:50 98 H 27 H 138/51 95 11/14/18 19:45 97.5 F L 11/14/18 19:40 98 H 27 H 128/55 99 11/14/18 19:30 99 H 28 H 128/55 100 11/14/18 19:20 100 H 28 H 132/54 100 11/14/18 19:10 101 H 27 H 137/47 100 11/14/18 19:00 102 H 27 H 137/47 100 11/14/18 18:50 103 H 27 H 128/49 100 11/14/18 18:40 105 H 30 H 125/43 100 11/14/18 18:30 105 H 28 H 125/43 100 11/14/18 18:20 105 H 29 H 144/45 100 11/14/18 18:10 105 H 28 H 138/45 100 11/14/18 18:05 34 H 11/14/18 18:00 100 H 29 H 121/41 100 11/14/18 17:50 99 H 30 H 136/47 100 11/14/18 17:40 99 H 29 H 138/45 100 11/14/18 17:30 100 H 29 H 138/45 100 11/14/18 17:20 100 H 30 H 128/53 100 11/14/18 17:10 99 H 29 H 111/33 100 11/14/18 17:00 97 H 30 H 117/45 99 11/14/18 16:50 96 H 30 H 118/46 95 11/14/18 16:40 87 30 H 111/33 72 L 11/14/18 16:30 82 31 H 126/39 11/14/18 16:20 80 30 H 126/39 11/14/18 16:10 82 31 H 119/42 11/14/18 16:00 97.3 F L 84 32 H 119/42 11/14/18 15:50 84 32 H 109/56 11/14/18 15:40 85 31 H 126/48 84 11/14/18 15:30 88 23 115/35 11/14/18 15:20 88 23 115/35 97 11/14/18 15:10 86 33 H 115/35 76 L 11/14/18 15:00 85 33 H 89/50 74 L 11/14/18 14:50 84 34 H 89/50 88 11/14/18 14:40 81 34 H 89/50 11/14/18 14:30 78 34 H 89/50 11/14/18 14:20 77 33 H 89/50 11/14/18 14:10 79 35 H 89/50 11/14/18 14:00 81 35 H 89/50 11/14/18 13:50 82 35 H 89/50 11/14/18 13:40 82 35 H 89/50 11/14/18 13:30 85 35 H 89/50 11/14/18 13:20 86 34 H 89/50 98 11/14/18 13:10 87 36 H 89/50 99 11/14/18 13:00 88 36 H 89/50 98 11/14/18 12:58 89 72/35 99 11/14/18 12:50 89 36 H 89/50 100 11/14/18 12:40 89 35 H 89/50 99 11/14/18 12:30 80 37 H 89/50 50 L 11/14/18 12:20 81 36 H 89/50 11/14/18 12:10 86 37 H 89/50 97 - Physical Examination General: Other (Intubated ) Cardiac: Positive: Reg Rate and Rhythm - Labs and Meds CBC 11/14/18 11/15/18 Range/Units 20:12 03:36 WBC 11.7 H 12.2 H (4.5-11.0) K/mm3 RBC 3.02 L 3.20 L (3.65-5.03) M/mm3 Hgb 7.3 L 7.8 L (11.8-15.2) gm/dl Hct 26.8 L D 29.3 L (35.5-45.6) % Plt Count 51 L 44 L (140-440) K/mm3 Comprehensive Metabolic Panel 11/14/18 11/15/18 Range/Units 20:12 03:36 Sodium 147 H 143 (137-145) mmol/L Potassium 4.5 4.4 (3.6-5.0) mmol/L Chloride 105.0 102.0 (98-107) mmol/L Carbon Dioxide 7 L* 8 L* (22-30) mmol/L BUN 15 15 (9-20) mg/dL Creatinine 3.2 H 3.4 H (0.8-1.5) mg/dL Glucose 172 H 359 H (75-100) mg/dL Calcium 5.3 L* D 5.0 L* (8.4-10.2) mg/dL
--- NOTE | 2018-11-15 15:44 | Progress Note ---
Assessment and Plan Assessment and plan: Sepsis with septic shock secondary to perforated duodenal ulcer - Free air in the peritoneum, surgery was consulted and after extensive discussion with the patient surgery was done and the perforation was patched -Patient is septic with lactic acid level 15, patient is on IV antibiotics including antifungals -Patient is maxed out with 3 pressors and patient's blood pressure is still low Respiratory failure, patient is intubated and on mechanical ventilation Severe lactic acidosis, metabolic acidosis; patient was given bicarbonate despite that his pH is below 7 Cirrhosis with ascites; about 4 L off athletic fluid was drained during surgery, there was no pus Cardiomyopathy; cardiology was consulted and noting much can be done I have extensive discussion with his sister and she knows about his condition and she wants him to be full code, patient usually said he wants to live. Patient has 2 grown children and doesn't have any relation with them because of his behavior, alcoholism and drug use. CODE STATUS; AND Prognosis; very poor The high probability of a clinically significant, sudden or life threatening deterioration of the [cardiovascular, respiratory, neurology, GI] system(s) required my full and direct attention, intervention and personal management. The aggregate critical care time was [45] minutes. This time is in addition to time spent performing reported procedures but includes the following: [x] Data Review and interpretation [x] Patient assessment and monitoring of vital signs [x] Documentation [x] Medication orders and management History Interval history: Patient was seen and evaluated this morning, patient is in distress, he was intubated and on mechanical ventilation, patient is off pressors and didn't wake up. Production Supervisor Trainee discussed with his daughter and made him DNR. Hospitalist Physical - Physical exam Narrative exam: Patient is in cardiopulmonary distress. Patient is intubated and on mechanical ventilation The patient appeared well nourished and normally developed. Vital signs as documented. Patient is on 3 pressors and blood pressures dropping. Head exam is unremarkable. No scleral icterus . Neck is without jugular venous distension, thyromegaly, or carotid bruits. Lungs are clear to auscultation. Cardiac exam reveals regular rate and Rhythm. Patient is on 3 pressors and blood pressures dropping. Abdominal exam reveals laparoscopic surgical incision draining tube is in place. Skin reddish discoloration in the groin and scrotal area. SALES SERVICE SUPERVISOR: Comatose. - Constitutional Vitals: Temp Pulse Resp BP Pulse Ox 94.8 F L 79 19 94/43 98 11/15/18 12:00 11/15/18 14:30 11/15/18 14:30 11/15/18 14:30 11/15/18 14:30 General appearance: Present: no acute distress, well-nourished Results - Labs CBC & Chem 7: 11/15/18 03:36 11/15/18 03:36 Labs: Laboratory Last Values WBC 12.2 K/mm3 (4.5-11.0) H 11/15/18 03:36 RBC 3.20 M/mm3 (3.65-5.03) L 11/15/18 03:36 Hgb 7.8 gm/dl (11.8-15.2) L 11/15/18 03:36 Hct 29.3 % (35.5-45.6) L 11/15/18 03:36 MCV 91 fl (84-94) 11/15/18 03:36 MCH 24 pg (28-32) L 11/15/18 03:36 MCHC 27 % (32-34) L 11/15/18 03:36 RDW 23.7 % (13.2-15.2) H 11/15/18 03:36 Plt Count 44 K/mm3 (140-440) L 11/15/18 03:36 Lymph % (Auto) 17.8 % (13.4-35.0) 11/12/18 21:50 Banner % (Auto) 5.3 % (0.0-7.3) 11/12/18 21:50 Eos % (Auto) 0.7 % (0.0-4.3) 11/12/18 21:50 Baso % (Auto) 0.5 % (0.0-1.8) 11/12/18 21:50 Lymph # 0.8 K/mm3 (1.2-5.4) L 11/12/18 21:50 Banner # 0.2 K/mm3 (0.0-0.8) 11/12/18 21:50 Eos # 0.0 K/mm3 (0.0-0.4) 11/12/18 21:50 Baso # 0.0 K/mm3 (0.0-0.1) 11/12/18 21:50 Add Manual Diff Complete 11/15/18 03:36 Total Counted 100 11/15/18 03:36 Seg Neutrophils % 75.7 % (40.0-70.0) H 11/12/18 21:50 Seg Neuts % (Manual) 73.0 % (40.0-70.0) H 11/15/18 03:36 Band Neutrophils % 13.0 % 11/15/18 03:36 Lymphocytes % (Manual) 6.0 % (13.4-35.0) L 11/15/18 03:36 Reactive Lymphs % (Man) 0 % 11/15/18 03:36 Monocytes % (Manual) 6.0 % (0.0-7.3) 11/15/18 03:36 Eosinophils % (Manual) 0 % (0.0-4.3) 11/15/18 03:36 Basophils % (Manual) 0 % (0.0-1.8) 11/15/18 03:36 Metamyelocytes % 2.0 % 11/15/18 03:36 Myelocytes % 0 % 11/15/18 03:36 Promyelocytes % 0 % 11/15/18 03:36 Blast Cells % 0 % 11/15/18 03:36 Nucleated RBC % 1.0 % (0.0-0.9) H 11/15/18 03:36 Seg Neutrophils # 3.3 K/mm3 (1.8-7.7) 11/12/18 21:50 Seg Neutrophils # Man 8.9 K/mm3 (1.8-7.7) H 11/15/18 03:36 Band Neutrophils # 1.6 K/mm3 11/15/18 03:36 Lymphocytes # (Manual) 0.7 K/mm3 (1.2-5.4) L 11/15/18 03:36 Abs React Lymphs (Man) 0.0 K/mm3 11/15/18 03:36 Monocytes # (Manual) 0.7 K/mm3 (0.0-0.8) 11/15/18 03:36 Eosinophils # (Manual) 0.0 K/mm3 (0.0-0.4) 11/15/18 03:36 Basophils # (Manual) 0.0 K/mm3 (0.0-0.1) 11/15/18 03:36 Metamyelocytes # 0.2 K/mm3 11/15/18 03:36 Myelocytes # 0.0 K/mm3 11/15/18 03:36 Promyelocytes # 0.0 K/mm3 11/15/18 03:36 Blast Cells # 0.0 K/mm3 11/15/18 03:36 WBC Morphology Not Reportable 11/15/18 03:36 Hypersegmented Neuts Not Reportable 11/15/18 03:36 Hyposegmented Neuts Not Reportable 11/15/18 03:36 Hypogranular Neuts Not Reportable 11/15/18 03:36 Smudge Cells Not Reportable 11/15/18 03:36 Toxic Granulation Not Reportable 11/15/18 03:36 Toxic Vacuolation Not Reportable 11/15/18 03:36 Dohle Bodies Not Reportable 11/15/18 03:36 Pelger-Huet Anomaly Not Reportable 11/15/18 03:36 April Rods Not Reportable 11/15/18 03:36 Platelet Estimate Consistent w auto 11/15/18 03:36 Clumped Platelets Not Reportable 11/15/18 03:36 Plt Clumps, EDTA Not Reportable 11/15/18 03:36 Large Platelets Not Reportable 11/15/18 03:36 Giant Platelets Not Reportable 11/15/18 03:36 Platelet Satelliting Not Reportable 11/15/18 03:36 Plt Morphology Comment Not Reportable 11/15/18 03:36 RBC Morphology Not Reportable 11/15/18 03:36 Dimorphic RBCs Not Reportable 11/15/18 03:36 Polychromasia Not Reportable 11/15/18 03:36 Hypochromasia 2+ 11/15/18 03:36 Poikilocytosis 1+ 11/15/18 03:36 Anisocytosis Not Reportable 11/15/18 03:36 Microcytosis Not Reportable 11/15/18 03:36 Macrocytosis Not Reportable 11/15/18 03:36 Spherocytes Not Reportable 11/15/18 03:36 Pappenheimer Bodies Not Reportable 11/15/18 03:36 Sickle Cells Not Reportable 11/15/18 03:36 Target Cells Not Reportable 11/15/18 03:36 Tear Drop Cells Few 11/15/18 03:36 Ovalocytes Few 11/15/18 03:36 Helmet Cells Not Reportable 11/15/18 03:36 [place] Bodies Not Reportable 11/15/18 03:36 [place] Rings Not Reportable 11/15/18 03:36 [place] Cells Few 11/15/18 03:36 Bite Cells Not Reportable 11/15/18 03:36 Crenated Cell Not Reportable 11/15/18 03:36 Elliptocytes Few 11/15/18 03:36 Acanthocytes (Spur) Not Reportable 11/15/18 03:36 Rouleaux Not Reportable 11/15/18 03:36 Hemoglobin C Crystals Not Reportable 11/15/18 03:36 Schistocytes Rare 11/15/18 03:36 Malaria parasites Not Reportable 11/15/18 03:36 Marco Antonio Bodies Not Reportable 11/15/18 03:36 Hem Pathologist Commnt No 11/15/18 03:36 PT 22.2 Sec. (12.2-14.9) H 11/13/18 00:59 INR 1.90 (0.87-1.13) H 11/13/18 00:59 APTT 30.3 Sec. (24.2-36.6) 11/13/18 00:59 POC ABG pH 6.871 (7.35-7.45) L 11/15/18 04:12 POC ABG pCO2 33.4 (35-45) L 11/15/18 04:12 POC ABG pO2 87 (80-105) 11/15/18 04:12 POC ABG HCO3 6.1 11/15/18 04:12 POC ABG Total CO2 7 11/15/18 04:12 POC ABG O2 Sat 86 11/15/18 04:12 POC ABG Base Excess -27 11/15/18 04:12 FiO2 100 % 11/15/18 04:12 Sodium 143 mmol/L (137-145) 11/15/18 03:36 Potassium 4.4 mmol/L (3.6-5.0) 11/15/18 03:36 Chloride 102.0 mmol/L (98-107) 11/15/18 03:36 Carbon Dioxide 8 mmol/L (22-30) L* 11/15/18 03:36 Anion Gap 37 mmol/L 11/15/18 03:36 BUN 15 mg/dL (9-20) 11/15/18 03:36 Creatinine 3.4 mg/dL (0.8-1.5) H 11/15/18 03:36 Estimated GFR 18 ml/min 11/15/18 03:36 BUN/Creatinine Ratio 4 % 11/15/18 03:36 Glucose 359 mg/dL (75-100) H 11/15/18 03:36 POC Glucose 286 (70-105) H 11/15/18 13:24 Lactic Acid 15.00 mmol/L (0.7-2.0) H* 11/14/18 14:20 Calcium 5.0 mg/dL (8.4-10.2) L* 11/15/18 03:36 Magnesium 2.00 mg/dL (1.7-2.3) 11/13/18 06:56 Total Bilirubin 5.20 mg/dL (0.1-1.2) H 11/14/18 05:20 Direct Bilirubin 0.9 mg/dL (0-0.2) H 11/12/18 Unknown Indirect Bilirubin 1.6 mg/dL 11/12/18 Unknown AST 2651 units/L (5-40) H 11/14/18 05:20 ALT 437 units/L (7-56) H 11/14/18 05:20 Alkaline Phosphatase 34 units/L (35-129) L 11/14/18 05:20 Total Creatine Kinase 290 units/L (55-170) H 11/13/18 12:02 CK-MB (CK-2) 3.8 ng/mL (0.0-4.0) 11/13/18 12:02 CK-MB (CK-2) Rel Index 1.3 (0-4) 11/13/18 12:02 Troponin T < 0.010 ng/mL (0.00-0.029) 11/13/18 12:02 NT-Pro-B Natriuret Pep 823.6 pg/mL (0-900) 11/12/18 Unknown Total Protein 5.6 g/dL (6.3-8.2) L D 11/14/18 05:20 Albumin 2.6 g/dL (3.9-5) L 11/14/18 05:20 Albumin/Globulin Ratio 0.9 % 11/14/18 05:20 Blood Type O POSITIVE 11/14/18 01:08 Antibody Screen Negative 11/14/18 01:08 Crossmatch See Detail 11/14/18 01:08 Nutrition/Malnutrition Assess - Dietary Evaluation Nutrition/Malnutrition Findings: Nutrition Notes Start: 11/14/18 09:54 Freq: Status: Active Protocol: Document 11/14/18 09:54 LP (Rec: 11/14/18 10:03 LP [id number]) Nutrition Notes Need for Assessment generated from: MD Order Initial or Follow up Assessment Current Diagnoses COPD Hypertension Other Pertinent Diagnosis hep C Current Diet NPO Labs/Tests K 5.6 Cr 2.5 BG 11 Medications Reviewed Height 5 ft 8 in Weight 90.718 kg Bowman Body Weight (lbs) 154.0 BMI 30.4 Subjective/Other Information Consult for evaluate nutritional intake. Pt on vent with NGT to LIS. Burn Absent Trauma Absent #1 Nutrition Diagnoses Inadequate oral intake Etiology vent As Evidenced by Signs and Symptoms Pt NPO and unable to consume PO Is patient on ventilator? Yes Is Patient Ambulatory and/or Out of Bed No REE-([place]-St. Jeor-confined to bed) Calculation Used for Recommendations [place]-St Jeor Additional Notes Protein needs are 140g (2g/kg IBW) Fluid needs are 1ml/kcal Nutrition Intervention Change Diet Order: TF once consulted Goal #1 TF once consulted Anticipated Discharge Needs: Unable to determine at this time Follow-Up By: 11/16/18 Additional Comments Follow for TF consult or extubation
[2018-11-15] MEDS: ADRENALIN 8 MG in NACL 0.9% 250ML 242 ML IV SCH (18:58)
[2018-11-15 21:19] VITALS: BP 73/24
--- NOTE | 2018-11-16 07:11 | Event Note ---
Date: 11/25/18 I WAS CALLED TO EVALUATE A PATIENT SUSPECTED TO HAVE . ON EXAMINATION; PATIENT WAS LYING LIFELESS ON HIS BED WITH NO SPONTANEOUS MOVEMENT OR BREATHING. PUPILS WERE FIXED AND DILATED. CHEST AUSCULTATION REVEALED NO AIR MOVEMENT. AUSCULTATION OF THE HEART REVEALED NO IMPULSES . PATIENT'S CARDIAC MORNITOR SHOWED FLAT LINES IN 2 LEADS AND PATIENT WAS PRONOUNCED AT 9.45PM. FAMILY NOTIFIED BY NURSE ATTENDING TO PATIENT.
--- NOTE | 2018-11-26 08:17 | Death Summary ---
Summary - Providers Date of service: 11/16/18 Consults: 11/13/18 01:50 Consult to Physician [CONS] Stat Comment: aware Consulting Provider: KALPANA MAI Physician Instructions: Reason For Exam: unstable angina 11/13/18 05:19 Consult to Physician [CONS] Routine Comment: Consulting Provider: ETHEL TRIPLETT Physician Instructions: Reason For Exam: cc 11/13/18 13:27 Consult to Physician [CONS] Routine Comment: Consulting Provider: ROBERT CHUNG Physician Instructions: I have spoke with Dr brizuela Reason For Exam: Distended Abdomen with Lactic acidosis/sepsis 11/13/18 23:12 Consult to Dietitian/Nutrition [CONS] Routine Physician Instructions: Reason For Exam: Reason for Consult: Evaluate nutritional intake Attending: HEIDI SCANLON MD - summary Date of admission: 11/13/18 06:00 Date of : 11/15/18 Reason for admission: Abdominal pain, perforated duodnal ulcer, septic shock, multi organ failure Significant findings: 63 y/O male with medical history significant for alcoholic cirrhosis,duodnal ulcer, cardiomyoppathy admitted to ICU for the management of perforated duodnal ulcer, peritonitis, septic shock, respiratory failure Sepsis with septic shock secondary to perforated duodenal ulcer Free air in the peritoneum, surgery was consulted and after extensive discussion with the patient (risk of procedure including ). Surgery was done and the perforation was patched. Patient was septic with lactic acid level 15, patient is on IV antibiotics including antifungals Patient was maxed out with 3 pressors and patient was still hypotensive. Respiratory failure, patient was intubated and on mechanical ventilation after surgery. Severe lactic acidosis, metabolic acidosis; patient was given bicarbonate despite that his pH was below 7 Cirrhosis with ascites; about 4 L off ascitic fluid was drained during surgery, there was no pus. Patient was deeply comatose. Cardiomyopathy; cardiology was consulted and recommend medical management given his multiple co-morbid conditions. His daughter was contacted and explained about the condition of the patient she made him AND. 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
== END 2018-11-16 00:10 | DRG 853 ==
LOC: ED 21:09 → CC1 11-13 06:00
PROVIDERS: ADMIT Internal Medicine; ATTEND Internal Medicine
PROC: 0DU907Z Supplement Duodenum with Autologous Tissue Substitute, Open Approach (ICD-10-PCS; principal; 2018-11-13)
PROC: 0FB20ZX Excision of Left Lobe Liver, Open Approach, Diagnostic (ICD-10-PCS; 2018-11-13)
PROC: B54BZZA Ultrasonography of Right Lower Extremity Veins, Guidance (ICD-10-PCS; 2018-11-13)
PROC: 06HF33Z Insertion of Infusion Device into Right External Iliac Vein, Percutaneous Approach (ICD-10-PCS; 2018-11-13)
PROC: 30233K1 Transfusion of Nonautologous Frozen Plasma into Peripheral Vein, Percutaneous Approach (ICD-10-PCS; 2018-11-13)
PROC: 0DL70ZZ Occlusion of Stomach, Pylorus, Open Approach (ICD-10-PCS; 2018-11-13)
PROC: 0W9J0ZZ Drainage of Pelvic Cavity, Open Approach (ICD-10-PCS; 2018-11-13)
PROC: 4A033R1 Measurement of Arterial Saturation, Peripheral, Percutaneous Approach (ICD-10-PCS; 2018-11-14)
PROC: 03HY32Z Insertion of Monitoring Device into Upper Artery, Percutaneous Approach (ICD-10-PCS; 2018-11-14)
PROC: 5A1945Z Respiratory Ventilation, 24-96 Consecutive Hours (ICD-10-PCS; 2018-11-14)
PROC: 0BH17EZ Insertion of Endotracheal Airway into Trachea, Via Natural or Artificial Opening (ICD-10-PCS; 2018-11-14)
PROC: 30233N1 Transfusion of Nonautologous Red Blood Cells into Peripheral Vein, Percutaneous Approach (ICD-10-PCS; 2018-11-15)
DX: A41.9 Sepsis, unspecified organism (principal); K26.6 Chronic or unspecified duodenal ulcer with both hemorrhage and perforation; R65.21 Severe sepsis with septic shock; J96.00 Acute respiratory failure, unspecified whether with hypoxia or hypercapnia; I47.2 Ventricular tachycardia; I25.110 Atherosclerotic heart disease of native coronary artery with unstable angina pectoris; R18.8 Other ascites; I42.9 Cardiomyopathy, unspecified; E87.2 Acidosis; J44.9 Chronic obstructive pulmonary disease, unspecified; I44.7 Left bundle-branch block, unspecified; K74.60 Unspecified cirrhosis of liver; D69.6 Thrombocytopenia, unspecified; E87.6 Hypokalemia; F10.10 Alcohol abuse, uncomplicated; Y90.0 Blood alcohol level of less than 20 mg/100 ml; M10.9 Gout, unspecified; F17.210 Nicotine dependence, cigarettes, uncomplicated; I49.9 Cardiac arrhythmia, unspecified; Z66 Do not resuscitate; Z82.49 Family history of ischemic heart disease and other diseases of the circulatory system; Z71.6 Tobacco abuse counseling
CPT/HCPCS: 36415; 36430; 36600; 36620; 71045; 71275; 74176; 74177; 80048; 80053; 80076; 82140; 82550; 82553; 82803; 82962; 83735; 83880; 84484; 85007; 85014; 85018; 85025; 85027; 85049; 85610; 85730; 86850; 86900; 86901; 86920; 87040; 87070; 87075; 87086; 87116; 87205; 88307; 88313; 93005; 93010; 93306; 94002; 94003; 94760; 99406; G0378; C9113; J0171; J0282; J1100; J1250; J1265; J1450; J1644; J2250; J2270; J2370; J2405; J2543; J2704; J3010; J3475; J3480; J7030; J7040; J7050; J7060; J7070; P9016; P9017; P9045; Q9967